=== PATIENT | male | born 1965 | race Caucasian/White ===

== ENCOUNTER 2017-04-24 11:21 | Inpatient (IN) | payer OTHER ==
--- NOTE | 2017-04-24 11:46 | ED ---
General Adult HPI - General Stated complaint: CHEST PAIN, GABY AND BOIL ON GENITALS Time Seen by Provider: 04/24/17 11:41 Source: RN notes reviewed, old records reviewed - History of Present Illness Initial comments: This is a 51-year-old male the ER for evaluation. This patient presents today for evaluation regarding chest pain, out of control blood sugar, and different infections abscesses and rashes. Patient states he is not receiving any medical care although he has a significant medical history even from cardiac bypass. He states just things are going on and off for a while. Patient is also a blood sugar running out of control. Patient states just in general he is not feel well. No nausea or vomiting at this time. No diarrhea. No abdominal pain - Related Data Home Medications Medication Instructions Recorded Confirmed No Known Home Medications [No 04/24/17 04/24/17 Known Home Medications] Allergies Allergy/AdvReac Type Severity Reaction Status Date / Time No Known Allergies Allergy Verified 04/24/17 12:06 Review of Systems ROS Statement: Those systems with pertinent positive or pertinent negative responses have been documented in the HPI. ROS Other: All systems not noted in ROS Statement are negative. General Exam - General Exam Comments Initial Comments: Groin infection,. Positive purulent Drainage General appearance: alert, in no apparent distress Head exam: Present: atraumatic, normocephalic, normal inspection Eye exam: Present: normal appearance, PERRL, EOMI. Absent: scleral icterus, conjunctival injection, periorbital swelling ENT exam: Present: normal exam, mucous membranes moist Neck exam: Present: normal inspection. Absent: tenderness, meningismus, lymphadenopathy Respiratory exam: Present: normal lung sounds bilaterally. Absent: respiratory distress, wheezes, rales, rhonchi, stridor Cardiovascular Exam: Present: regular rate, normal rhythm, normal heart sounds. Absent: systolic murmur, diastolic murmur, rubs, gallop, clicks GI/Abdominal exam: Present: soft, normal bowel sounds. Absent: distended, tenderness, guarding, rebound, rigid Extremities exam: Present: normal inspection, full ROM, normal capillary refill. Absent: tenderness, pedal edema, joint swelling, calf tenderness Back exam: Present: normal inspection Neurological exam: Present: alert, oriented X3, CN II-XII intact Psychiatric exam: Present: normal affect, normal mood Skin exam: Present: warm, dry, intact, normal color. Absent: rash Course Vital Signs 04/24/17 04/24/17 11:25 12:39 Temperature 97.8 F Pulse Rate 90 84 Respiratory 16 16 Rate Blood Pressure 130/73 155/77 O2 Sat by Pulse 97 99 Oximetry - Reevaluation(s) Reevaluation #1: 04/24/17 12:53 Patient states he just does not feel well feels weak EKG Findings - EKG Comments: EKG Findings:: EKG shows normal sinus at a rate of 88, NE 180, QRS 108, QTC 471 Medical Decision Making - Medical Decision Making 449 mallei chest pain. Patient has multiple other complaints including severely elevated blood sugar is new for him and groin infections, patient stopped seeing physicians are as of recent, takes no medication that he is supposed to. With significant history of cardiac bypass 17 years ago. - Lab Data Result diagrams: 04/24/17 11:40 04/24/17 11:40 Lab Results 04/24/17 04/24/17 04/24/17 Range/Units 11:40 11:40 11:40 WBC 11.0 H (3.8-10.6) k/uL RBC 4.97 (4.30-5.90) m/uL Hgb 14.9 (13.0-17.5) gm/dL Hct 43.4 (39.0-53.0) % MCV 87.3 (80.0-100.0) fL MCH 30.0 (25.0-35.0) pg MCHC 34.3 (31.0-37.0) g/dL RDW 12.8 (11.5-15.5) % Plt Count 251 (150-450) k/uL Neutrophils % 69 % Lymphocytes % 20 % Monocytes % 5 % Eosinophils % 4 % Basophils % 1 % Neutrophils # 7.6 (1.3-7.7) k/uL Lymphocytes # 2.2 (1.0-4.8) k/uL Monocytes # 0.5 (0-1.0) k/uL Eosinophils # 0.4 (0-0.7) k/uL Basophils # 0.1 (0-0.2) k/uL PT (9.0-12.0) sec INR (<1.2) APTT (22.0-30.0) sec D-Dimer (<0.60) mg/L FEU Sodium 135 L (137-145) mmol/L Potassium 4.4 (3.5-5.1) mmol/L Chloride 99 (98-107) mmol/L Carbon Dioxide 26 (22-30) mmol/L Anion Gap 10 mmol/L BUN 8 L (9-20) mg/dL Creatinine 0.70 (0.66-1.25) mg/dL Est GFR (MDRD) Af Amer >60 (>60 ml/min/1.73 sqM) Est GFR (MDRD) Non-Af >60 (>60 ml/min/1.73 sqM) Glucose 450 H* (74-99) mg/dL Calcium 9.1 (8.4-10.2) mg/dL Magnesium 0.8 L* (1.6-2.3) mg/dL Total Bilirubin 0.3 (0.2-1.3) mg/dL AST 16 L (17-59) U/L ALT 26 (21-72) U/L Alkaline Phosphatase 220 H (38-126) U/L Total Creatine Kinase 32 L (55-170) U/L CK-MB (CK-2) 0.7 (0.0-2.4) ng/mL CK-MB (CK-2) Rel Index 2.2 Troponin I <0.012 (0.000-0.034) ng/mL Total Protein 5.7 L (6.3-8.2) g/dL Albumin 3.4 L (3.5-5.0) g/dL Lipase 235 (23-300) U/L 04/24/17 Range/Units 11:40 WBC (3.8-10.6) k/uL RBC (4.30-5.90) m/uL Hgb (13.0-17.5) gm/dL Hct (39.0-53.0) % MCV (80.0-100.0) fL MCH (25.0-35.0) pg MCHC (31.0-37.0) g/dL RDW (11.5-15.5) % Plt Count (150-450) k/uL Neutrophils % % Lymphocytes % % Monocytes % % Eosinophils % % Basophils % % Neutrophils # (1.3-7.7) k/uL Lymphocytes # (1.0-4.8) k/uL Monocytes # (0-1.0) k/uL Eosinophils # (0-0.7) k/uL Basophils # (0-0.2) k/uL PT 13.8 H (9.0-12.0) sec INR 1.4 H (<1.2) APTT 26.1 (22.0-30.0) sec D-Dimer 0.31 (<0.60) mg/L FEU Sodium (137-145) mmol/L Potassium (3.5-5.1) mmol/L Chloride (98-107) mmol/L Carbon Dioxide (22-30) mmol/L Anion Gap mmol/L BUN (9-20) mg/dL Creatinine (0.66-1.25) mg/dL Est GFR (MDRD) Af Amer (>60 ml/min/1.73 sqM) Est GFR (MDRD) Non-Af (>60 ml/min/1.73 sqM) Glucose (74-99) mg/dL Calcium (8.4-10.2) mg/dL Magnesium (1.6-2.3) mg/dL Total Bilirubin (0.2-1.3) mg/dL AST (17-59) U/L ALT (21-72) U/L Alkaline Phosphatase (38-126) U/L Total Creatine Kinase (55-170) U/L CK-MB (CK-2) (0.0-2.4) ng/mL CK-MB (CK-2) Rel Index Troponin I (0.000-0.034) ng/mL Total Protein (6.3-8.2) g/dL Albumin (3.5-5.0) g/dL Lipase (23-300) U/L - Radiology Data Radiology results: report reviewed (Chest x-ray is negative for acute disease), image reviewed Critical Care Time Critical Care Time: Yes Total Critical Care Time: 31 Disposition Clinical Impression: Chest pain, Hyperglycemia, Hypomagnesemia, Cellulitis of groin Disposition: ADMITTED IP TO THIS [facility] Referrals: Leeann Torres MD [Primary Care Provider] - 1-2 days
[2017-04-24 11:52] LABS: Basophils # (A) 0.1 k/uL (0-0.2); Basophils % (A) 1 %; CHCM 34.5; Eosinophils # (A) 0.4 k/uL (0-0.7); Eosinophils % (A) 4 %; HCT 43.4 % (39.0-53.0); HDW 2.65; HGB 14.9 gm/dL (13.0-17.5); Luc # (Auto) 0.22; Luc % (Auto) 2; Lymphocytes # (A) 2.2 k/uL (1.0-4.8); Lymphocytes % (A) 20 %; MCHC 34.3 g/dL (31.0-37.0); MCV 87.3 fL (80.0-100.0); Mean Platelet Volume 7.8; Monocytes # (A) 0.5 k/uL (0-1.0); Monocytes % (A) 5 %; Neutrophils # (A) 7.6 k/uL (1.3-7.7); Neutrophils % (A) 69 %; RBC 4.97 m/uL (4.30-5.90); RDW 12.8 % (11.5-15.5); WBC (Perox) 11.07
[2017-04-24 12:18] LABS: INR 1.4 (<1.2); Partial Thromboplastin Time 26.1 sec (22.0-30.0); Prothrombin Time 13.8 sec (9.0-12.0)
[2017-04-24 12:23] LABS: Creatine Kinase 32 U/L (55-170)
[2017-04-24 12:28] LABS: ALT 26 U/L (21-72); AST 16 U/L (17-59); Alkaline Phosphatase 220 U/L (38-126); Anion Gap 10 mmol/L; Blood Urea Nitrogen 8 mg/dL (9-20); Calcium 9.1 mg/dL (8.4-10.2); Carbon Dioxide 26 mmol/L (22-30); Chloride 99 mmol/L (98-107); Non-African American GFR(MDRD) >60 (>60 ml/min/1.73 sqM); Potassium 4.4 mmol/L (3.5-5.1); Sodium 135 mmol/L (137-145); Total Bilirubin 0.3 mg/dL (0.2-1.3); Total Protein 5.7 g/dL (6.3-8.2)
[2017-04-24 12:36] LABS: Creatine Kinase MB 0.7 ng/mL (0.0-2.4); Troponin I <0.012 ng/mL (0.000-0.034)
[2017-04-24 12:37] LABS: Glucose 450 mg/dL (74-99)
[2017-04-24 12:38] LABS: Magnesium 0.8 mg/dL (1.6-2.3)
[2017-04-24] MEDS ORDERED: NITROGLYCERIN SL TABS 0.4 MG TAB SUBLINGUAL PRN (12:50)
[2017-04-24] MEDS ORDERED: ASPIRIN 81 MG CHEW PO STA (12:50)
[2017-04-24] MEDS ORDERED: SODIUM CHLORIDE 0.9% 1,000 ML IV STA (12:50)
[2017-04-24] MEDS ORDERED: IV VANCOMYCIN PER PHARMACY 1 EACH MISC MISCELLANE PRN (12:50)
[2017-04-24] MEDS ORDERED: SODIUM CHLORIDE 0.9% 500 ML IV STA (12:50)
[2017-04-24] MEDS: MAGNESIUM SULFATE-D5W PMX 1 GM in DEXTROSE/WATER 1 100ML.BAG IVPB SCH ×4 (13:29→16:53)
[2017-04-24] MEDS ORDERED: VANCOMYCIN 1,500 MG in SODIUM CHLORIDE 0.9% 250 ML IVPB ONE (13:30)
[2017-04-24] MEDS: HYDROcodone/APAP 7.5-325MG 1 EACH TAB PO PRN ×2 (14:30→19:07)
[2017-04-24] MEDS: SODIUM CHLORIDE 0.9% 1,000 ML IV SCH (15:12)
[2017-04-24 15:17] LABS: Glucose,Whole Blood 399 mg/dL (75-99)
--- NOTE | 2017-04-24 15:43 | XR ---
EXAMINATION TYPE: XR chest 2V DATE OF EXAM: 04/24/2017 COMPARISON: Chest x-ray July 30, 2010. HISTORY: Chest pain and difficulty in breathing. TECHNIQUE: Frontal and lateral views of the chest are obtained. FINDINGS: Sternal wires and mediastinal clips are redemonstrated. There is no focal air space opacit y, pleural effusion, or pneumothorax seen. The cardiac silhouette size is within normal limits. Rese ction of distal right clavicle is felt redemonstrated. IMPRESSION: No acute cardiopulmonary process. No significant change from prior study.
[2017-04-24] MEDS: INSULIN LISPRO (humaLOG) 300 UNIT/3 ML VIAL SQ SCH (15:45)
--- NOTE | 2017-04-24 16:01 | P.HPIM ---
History of Present Illness H&P Date: 04/24/17 Chief Complaint: Chest pain, right groin abscess uncontrolled sugars This is a 51-year-old gentleman with no previous PCP and hasn't established to our clinic yet , insurance card delegated myself as PCP,, known history of CAD in 1999 with 4 vessel bypass surgery performed at [facility] with Dr. nataarjan, also diabetes mellitus type 2 since 2008 compliant with medications now complaining of diabetic neuropathy, history of psoriasis, COPD, hypertension and hyperlipidemia not medicated at all prior to this current admission. He presents emergency room with multiple complaints include chest discomfort this has been ongoing for several months it is sharp and located in the left sternal border and the lower thoracic region, with a penetrating needle like sensation, also with shortness of breath with dyspnea and exertion for his short walks between 50-100 feet, patient denies any fever she has paresthesias in the lower extremities with pinprick sensation bilateral leg, right groin has an abscess that sounds like it ruptured and has been giving him problems for the past 6 days. Patient denies any PND no fever no chills no cough no aspirate the events patient has lost 25 pounds for the past 7 months with polyuria polydipsia polyphagia. Patient did not have any medical attention secondary to lack of insurance until his insurance card came in this week she denies any focal neurologic events to include headache that diplopia isolated unilateral motor deficits, no hematuria no hematemesis no melena In the emergency room he was seen about symptoms with leukocytosis, glucose of 450, CO2 levels 26, Actiq acid levels for review, lipase and d-dimer is are normal initial set of troponin is negative chest x-ray unremarkable, EKG shows normal sinus rhythm with Q waves in 3 and aVF significant for inferior infarct, and no other acute ST-T wave changes noted. Patient will be seen consultation by cardiology, and Dr. Hernandez for debridement of the right groin abscess. Patient was started on IV vancomycin with cultures obtained on the right groin. Review of Systems Constitutional: Reports anorexia, Reports chronic pain, Reports night sweats, Reports weight loss, Denies as per HPI, Denies chills, Denies chronic headaches , Denies daytime sleepiness, Denies fatigue, Denies fever, Denies lethargy, Denies malaise, Denies poor appetite, Denies sweats, Denies weakness, Denies weight gain Ears, nose, mouth and throat: Reports as per HPI, Denies ant. neck pain, Denies bleeding gums, Denies dental pain, Denies dysphagia, Denies epistaxis, Denies headache, Denies hoarseness, Denies mouth pain, Denies nasal congestion, Denies nasal discharge, Denies neck fullness/pressure, Denies neck lump, Denies nose pain, Denies odynophagia, Denies post-nasal drip, Denies sinus pain, Denies sinus pressure, Denies swelling in mouth, Denies swelling in throat, Denies sore throat, Denies vertigo, Denies voice changes Cardiovascular: Reports as per HPI, Reports chest pain, Reports decreased exercise tolerance, Reports dyspnea on exertion, Reports shortness of breath Respiratory: Reports as per HPI Gastrointestinal: Reports as per HPI, Denies abdominal pain, Denies belching, Denies bloating, Denies BRBPR, Denies change in bowel habits, Denies coffee ground emesis, Denies constipation, Denies diarrhea, Denies dyspepsia, Denies early satiety, Denies excessive gas, Denies heartburn, Denies hematemesis, Denies hematochezia, Denies indigestion, Denies jaundice, Denies lactose intolerance, Denies loss of appetite, Denies melena, Denies nausea, Denies vomiting Genitourinary: Reports as per HPI, Reports genital sores (Right groin abscess in the femoral crease), Denies decreased libido, Denies difficulties fathering child, Denies discharge, Denies dysuria, Denies erectile dysfunction, Denies flank pain, Denies genital pain, Denies hematuria, Denies impotence, Denies incontinence, Denies kidney stones, Denies nocturia, Denies polyuria, Denies testicular lump, Denies testicular pain, Denies urinary frequency, Denies urinary hesitancy, Denies urinary retention Musculoskeletal: Reports as per HPI, Reports leg numbness/tingling, Denies arm numbness/tingling, Denies atrophy, Denies fractures, Denies frequent falls, Denies gait dysfunction, Denies hot joints, Denies limitation of motion, Denies loss of height, Denies low back pain, Denies morning stiffness, Denies muscle cramps, Denies muscle weakness, Denies myalgias, Denies neck pain, Denies neck stiffness, Denies prior amputations, Denies redness of joints, Denies shooting arm pain, Denies shooting leg pain Integumentary: Reports as per HPI, Reports boils, Reports rash (Psoriasis) Neurological: Reports as per HPI, Reports paresthesias Psychiatric: Reports as per HPI, Reports insomnia, Reports sleep disturbances, Denies anhedonia, Denies anxiety, Denies anxiety attacks, Denies change in appetite, Denies change in libido, Denies change in sleep habits, Denies confusion, Denies depression, Denies difficulty concentrating, Denies disorientation, Denies hallucinations, Denies hopelessness, Denies hypersomnia, Denies irritability, Denies memory loss, Denies mood swings, Denies paranoia, Denies sadness/tearfulness, Denies suicidal ideation Endocrine: Reports as per HPI, Reports high blood sugars, Reports nocturia, Reports polydipsia, Reports polyphagia, Reports polyuria Hematologic/Lymphatic: Reports as per HPI, Denies easy bleeding, Denies easy bruising, Denies lymphadenopathy, Denies lymphedema, Denies thrombophilia Allergic/Immunologic: Reports as per HPI, Denies allergic rhinitis, Denies anaphylaxis, Denies angioedema, Denies gluten intolerance, Denies persistent infections, Denies seasonal allergies, Denies urticaria, Denies wheezing Past Medical History Past Medical History: Coronary Artery Disease (CAD), Chest Pain / Angina, Diabetes Mellitus, Hypertension History of Any Multi-Drug Resistant Organisms: None Reported Past Surgical History: Appendectomy, Cholecystectomy, Coronary Bypass/CABG (4. Vessel bypass [facility] 1999) Additional Past Surgical History / Comment(s): Lumbar disc surgery with cage, left shoulder scope Past Psychological History: Depression Smoking Status: Current every day smoker (2 packs per day) Past Alcohol Use History: None Reported Past Drug Use History: Marijuana - Past Family History Father History Unknown: Yes (Alive has dementia and lumbar disc disease) Mother History Unknown: Yes (Alive has cancer possibly throat unknown pathology) Brother(s) History Unknown: Yes (Brother from brain mass at age 38) Sister(s) History Unknown: Yes (Depression) Daughter(s) History Unknown: Yes (Healthy 1 daughter) Son(s) History Unknown: Yes (Healthy 5 sons) Medications and Allergies Home Medications Medication Instructions Recorded Confirmed Type No Known Home Medications [No 04/24/17 04/24/17 History Known Home Medications] Allergies Allergy/AdvReac Type Severity Reaction Status Date / Time No Known Allergies Allergy Verified 04/24/17 12:06 Physical Exam Vitals: Vital Signs Temp Pulse Resp BP Pulse Ox 04/24/17 14:33 97.8 F 87 17 134/86 100 04/24/17 13:25 97.8 F 90 18 138/81 99 04/24/17 12:39 84 16 155/77 99 04/24/17 11:25 97.8 F 90 16 130/73 97 Intake and Output 04/24/17 04/24/17 04/24/17 06:59 14:59 22:59 Other: Weight 70.307 kg Patient Weight 04/25/17 06:59 Weight 70.307 kg - Constitutional General appearance: cooperative, no acute distress - EENT Eyes: PERRLA, dentition normal, normal appearance ENT: NA/AT, normal oropharynx - Neck Neck: lymphadenopathy - Respiratory Respiratory: bilateral: CTA, negative: diminished, dullness, rales, wheezing - Cardiovascular Rhythm: regular Heart sounds: normal: S1, S2 Abnormal Heart Sounds: no systolic murmur, no diastolic murmur, no rub, no S3 Gallop, no S4 Gallop, no click, no other - Gastrointestinal General gastrointestinal: normal bowel sounds, soft - Genitourinary Male genitourinary: right inguinal lymphadenopathy (Right groin with ulcer and necrotic debris granulation tissue overlying it 2.5 cm x 2 cm inner thigh crease ) - Integumentary Integumentary: normal, normal turgor - Neurologic Neurologic: CNII-XII intact, focal deficits - Musculoskeletal Musculoskeletal: gait normal, strength equal bilaterally - Psychiatric Psychiatric: A&O x's 3, appropriate affect Results CBC & Chem 7: 04/24/17 11:40 04/24/17 11:40 Labs: Abnormal Lab Results - Last 24 Hours (Table) 04/24/17 04/24/17 04/24/17 Range/Units 11:40 11:40 11:40 WBC 11.0 H (3.8-10.6) k/uL PT (9.0-12.0) sec INR (<1.2) Sodium 135 L (137-145) mmol/L BUN 8 L (9-20) mg/dL Glucose 450 H* (74-99) mg/dL POC Glucose (mg/dL) (75-99) mg/dL Magnesium 0.8 L* (1.6-2.3) mg/dL AST 16 L (17-59) U/L Alkaline Phosphatase 220 H (38-126) U/L Total Creatine Kinase 32 L (55-170) U/L Total Protein 5.7 L (6.3-8.2) g/dL Albumin 3.4 L (3.5-5.0) g/dL 04/24/17 04/24/17 Range/Units 11:40 15:15 WBC (3.8-10.6) k/uL PT 13.8 H (9.0-12.0) sec INR 1.4 H (<1.2) Sodium (137-145) mmol/L BUN (9-20) mg/dL Glucose (74-99) mg/dL POC Glucose (mg/dL) 399 H (75-99) mg/dL Magnesium (1.6-2.3) mg/dL AST (17-59) U/L Alkaline Phosphatase (38-126) U/L Total Creatine Kinase (55-170) U/L Total Protein (6.3-8.2) g/dL Albumin (3.5-5.0) g/dL Laboratory Results WBC 11.0 k/uL (3.8-10.6) H 04/24/17 11:40 RBC 4.97 m/uL (4.30-5.90) 04/24/17 11:40 Hgb 14.9 gm/dL (13.0-17.5) 04/24/17 11:40 Hct 43.4 % (39.0-53.0) 04/24/17 11:40 MCV 87.3 fL (80.0-100.0) 04/24/17 11:40 MCH 30.0 pg (25.0-35.0) 04/24/17 11:40 MCHC 34.3 g/dL (31.0-37.0) 04/24/17 11:40 RDW 12.8 % (11.5-15.5) 04/24/17 11:40 Plt Count 251 k/uL (150-450) 04/24/17 11:40 Neutrophils % 69 % 04/24/17 11:40 Lymphocytes % 20 % 04/24/17 11:40 Monocytes % 5 % 04/24/17 11:40 Eosinophils % 4 % 04/24/17 11:40 Basophils % 1 % 04/24/17 11:40 Neutrophils # 7.6 k/uL (1.3-7.7) 04/24/17 11:40 Lymphocytes # 2.2 k/uL (1.0-4.8) 04/24/17 11:40 Monocytes # 0.5 k/uL (0-1.0) 04/24/17 11:40 Eosinophils # 0.4 k/uL (0-0.7) 04/24/17 11:40 Basophils # 0.1 k/uL (0-0.2) 04/24/17 11:40 PT 13.8 sec (9.0-12.0) H 04/24/17 11:40 INR 1.4 (<1.2) H 04/24/17 11:40 APTT 26.1 sec (22.0-30.0) 04/24/17 11:40 D-Dimer 0.31 mg/L FEU (<0.60) 04/24/17 11:40 Sodium 135 mmol/L (137-145) L 04/24/17 11:40 Potassium 4.4 mmol/L (3.5-5.1) 04/24/17 11:40 Chloride 99 mmol/L (98-107) 04/24/17 11:40 Carbon Dioxide 26 mmol/L (22-30) 04/24/17 11:40 Anion Gap 10 mmol/L 04/24/17 11:40 BUN 8 mg/dL (9-20) L 04/24/17 11:40 Creatinine 0.70 mg/dL (0.66-1.25) 04/24/17 11:40 Est GFR (MDRD) Af Amer >60 (>60 ml/min/1.73 sqM) 04/24/17 11:40 Est GFR (MDRD) Non-Af >60 (>60 ml/min/1.73 sqM) 04/24/17 11:40 Glucose 450 mg/dL (74-99) H* 04/24/17 11:40 POC Glucose (mg/dL) 399 mg/dL (75-99) H 04/24/17 15:15 POC Glu Mercury Recoverer ID Amber Rivera 04/24/17 15:15 Calcium 9.1 mg/dL (8.4-10.2) 04/24/17 11:40 Magnesium 0.8 mg/dL (1.6-2.3) L* 04/24/17 11:40 Total Bilirubin 0.3 mg/dL (0.2-1.3) 04/24/17 11:40 AST 16 U/L (17-59) L 04/24/17 11:40 ALT 26 U/L (21-72) 04/24/17 11:40 Alkaline Phosphatase 220 U/L (38-126) H 04/24/17 11:40 Total Creatine Kinase 32 U/L (55-170) L 04/24/17 11:40 CK-MB (CK-2) 0.7 ng/mL (0.0-2.4) 04/24/17 11:40 CK-MB (CK-2) Rel Index 2.2 04/24/17 11:40 Troponin I <0.012 ng/mL (0.000-0.034) 04/24/17 11:40 Total Protein 5.7 g/dL (6.3-8.2) L 04/24/17 11:40 Albumin 3.4 g/dL (3.5-5.0) L 04/24/17 11:40 Lipase 235 U/L (23-300) 04/24/17 11:40 Thrombosis Risk Factor Assmnt - DVT/VTE Prophylaxis DVT/VTE Prophylaxis: Low risk, early ambulation encouraged - Choose All That Apply Each Factor Represents 1 point: Age 41-60 years Thrombosis Risk Factor Assessment Total Risk Factor Score: 1 Thrombosis Risk Factor Assessment Level: Low Risk Assessment and Plan Plan: 1. Recurrent chest pain multifactorial associated with dyspnea and exertion, patient has multiple risk factors with underlying CAD prior CABG 4 vessel bypass , as well as uncontrolled untreated diabetes mellitus secondary to noncompliance , and current smoking history. Patient will be seen consultation by cardiology , echocardiogram will be done, cardiac troponins, patient would be in need of a stress test most likely chemical stress test secondary to groin abscess, either that of right wrist cardiac cath if needed, patient was seen by cardiology with aspirin 325 mg daily Lipitor 80 mg daily that was started and sublingual nitroglycerin when necessary 2. Diabetes mellitus type 2, since 1999 without any medical surveillance including medications for the past several years, dietitian to see for diabetic medications, patient was started on glimepiride 1 mg twice a day and hemoglobin A1c will be obtained 3. COPD exacerbation, no oral or IV Solu-Medrol be given, patient will be started on Pulmicort 1 mg twice a day along with albuterol Atrovent patient's sugars currently uncontrolled 4. Right groin crease ruptured abscess, cultures were done, patient was started on vancomycin and Rocephin. Cultures are back, consult Dr. Brannon for debridement and evaluation of the abscess 5. Noncompliance to manage old regimen and lack of medical supervision since 1999 again patient was advocated to comply with medication regimen for secondary and tertiary prevention 6. Tobacco exposure patient will be offered nicotine patches and assist with cessation program 7. Diabetic neuropathy gabapentin 100 mg 3 times a day would be started with be titrated as an outpatient 8. History of psoriasis currently stable no medication changes 8. Expected length of stay 3 nights CODE STATUS full GI prophylaxis Pepcid DVT prophylaxis KATHIE hose and early ambulation
[2017-04-24 16:57] LABS: Glucose,Whole Blood 303 mg/dL (75-99)
--- NOTE | 2017-04-24 18:22 | P.PN ---
Progress Note - Text Consult dictated. Will try local wound care with IV antibiotc. Possible surgery if doesn't respond
--- NOTE | 2017-04-24 18:31 | P.GSCN ---
History of Present Illness Consult date: 04/24/17 Reason for Consult: Possible debridement History of present illness: The patient was admitted with workup of chest pain. He also has diabetes which is not controlled. He's had an infection in the right posterior scrotal / buttock area for about 6 days. THis spontaneously drained. He had an infection in this area about 7 years ago when he had a heart catheterization. No exposure to MRSA. Review of Systems All systems: negative Past Medical History Past Medical History: Coronary Artery Disease (CAD), Chest Pain / Angina, Diabetes Mellitus, Hypertension History of Any Multi-Drug Resistant Organisms: None Reported Past Surgical History: Appendectomy, Cholecystectomy, Coronary Bypass/CABG (4. Vessel bypass [facility] 1999) Additional Past Surgical History / Comment(s): Lumbar disc surgery with cage, left shoulder scope Past Psychological History: Depression Smoking Status: Current every day smoker (2 packs per day) Past Alcohol Use History: None Reported Past Drug Use History: Marijuana - Past Family History Father History Unknown: Yes (Alive has dementia and lumbar disc disease) Mother History Unknown: Yes (Alive has cancer possibly throat unknown pathology) Brother(s) History Unknown: Yes (Brother from brain mass at age 38) Sister(s) History Unknown: Yes (Depression) Daughter(s) History Unknown: Yes (Healthy 1 daughter) Son(s) History Unknown: Yes (Healthy 5 sons) Medications and Allergies Home Medications Medication Instructions Recorded Confirmed Type No Known Home Medications [No 04/24/17 04/24/17 History Known Home Medications] Allergies Allergy/AdvReac Type Severity Reaction Status Date / Time No Known Allergies Allergy Verified 04/24/17 12:06 Surgical - Exam Osteopathic Statement: *. No significant issues noted on an osteopathic structural exam other than those noted in the History and Physical/Consult. Vital Signs Temp Pulse Resp BP Pulse Ox 97.8 F 90 16 130/73 97 04/24/17 11:25 04/24/17 11:25 04/24/17 11:25 04/24/17 11:25 04/24/17 11:25 - General well developed, well nourished, no distress - Eyes normal ocular movement - Integumentary He has a 1.5 cm skin opening about 1.5-2 cm deep with surrounding superficial cellulitis. No undrained abscess. Small amount of slough present. Results - Labs 04/24/17 11:40 04/24/17 11:40 Abnormal Lab Results - Last 24 Hours (Table) 04/24/17 04/24/17 04/24/17 Range/Units 11:40 11:40 11:40 WBC 11.0 H (3.8-10.6) k/uL PT (9.0-12.0) sec INR (<1.2) Sodium 135 L (137-145) mmol/L BUN 8 L (9-20) mg/dL Glucose 450 H* (74-99) mg/dL POC Glucose (mg/dL) (75-99) mg/dL Magnesium 0.8 L* (1.6-2.3) mg/dL AST 16 L (17-59) U/L Alkaline Phosphatase 220 H (38-126) U/L Total Creatine Kinase 32 L (55-170) U/L Total Protein 5.7 L (6.3-8.2) g/dL Albumin 3.4 L (3.5-5.0) g/dL 04/24/17 04/24/17 04/24/17 Range/Units 11:40 15:15 16:56 WBC (3.8-10.6) k/uL PT 13.8 H (9.0-12.0) sec INR 1.4 H (<1.2) Sodium (137-145) mmol/L BUN (9-20) mg/dL Glucose (74-99) mg/dL POC Glucose (mg/dL) 399 H 303 H (75-99) mg/dL Magnesium (1.6-2.3) mg/dL AST (17-59) U/L Alkaline Phosphatase (38-126) U/L Total Creatine Kinase (55-170) U/L Total Protein (6.3-8.2) g/dL Albumin (3.5-5.0) g/dL Microbiology - Last 24 Hours (Table) 04/24/17 13:25 Wound Culture - Preliminary Groin Diabetes panel 04/24/17 Range/Units 11:40 Sodium 135 L (137-145) mmol/L Potassium 4.4 (3.5-5.1) mmol/L Chloride 99 (98-107) mmol/L Carbon Dioxide 26 (22-30) mmol/L BUN 8 L (9-20) mg/dL Creatinine 0.70 (0.66-1.25) mg/dL Glucose 450 H* (74-99) mg/dL Calcium 9.1 (8.4-10.2) mg/dL AST 16 L (17-59) U/L ALT 26 (21-72) U/L Alkaline Phosphatase 220 H (38-126) U/L Total Protein 5.7 L (6.3-8.2) g/dL Albumin 3.4 L (3.5-5.0) g/dL Calcium panel 04/24/17 Range/Units 11:40 Calcium 9.1 (8.4-10.2) mg/dL Albumin 3.4 L (3.5-5.0) g/dL Pituitary panel 04/24/17 Range/Units 11:40 Sodium 135 L (137-145) mmol/L Potassium 4.4 (3.5-5.1) mmol/L Chloride 99 (98-107) mmol/L Carbon Dioxide 26 (22-30) mmol/L BUN 8 L (9-20) mg/dL Creatinine 0.70 (0.66-1.25) mg/dL Glucose 450 H* (74-99) mg/dL Calcium 9.1 (8.4-10.2) mg/dL Adrenal panel 04/24/17 Range/Units 11:40 Sodium 135 L (137-145) mmol/L Potassium 4.4 (3.5-5.1) mmol/L Chloride 99 (98-107) mmol/L Carbon Dioxide 26 (22-30) mmol/L BUN 8 L (9-20) mg/dL Creatinine 0.70 (0.66-1.25) mg/dL Glucose 450 H* (74-99) mg/dL Calcium 9.1 (8.4-10.2) mg/dL Total Bilirubin 0.3 (0.2-1.3) mg/dL AST 16 L (17-59) U/L ALT 26 (21-72) U/L Alkaline Phosphatase 220 H (38-126) U/L Total Protein 5.7 L (6.3-8.2) g/dL Albumin 3.4 L (3.5-5.0) g/dL Assessment and Plan (1) Cellulitis of groin Status: Acute (2) Hyperglycemia Status: Acute Plan: A culture was obtained. He is on broad-spectrum antibiotics. We'll start local wound care. No need for debridement at this point. This may need debridement if it does not respond however.
[2017-04-24 18:46] LABS: Hemoglobin A1C 14.7 % (4.2-6.1)
[2017-04-24 18:55] LABS: Creatine Kinase 28 U/L (55-170)
[2017-04-24 19:00] VITALS: RESP 18
[2017-04-24 19:05] LABS: Creatine Kinase MB 0.7 ng/mL (0.0-2.4); Troponin I <0.012 ng/mL (0.000-0.034)
[2017-04-24] MEDS: NICOTINE 21MG/24HR PATCH TRANSDERM SCH (19:07)
[2017-04-24] MEDS: GLIMEPIRIDE 1 MG TAB PO SCH (19:07)
[2017-04-24] MEDS: GABAPENTIN 100 MG CAP PO SCH ×2 (19:08→22:02)
[2017-04-24] MEDS: BUDESONIDE 0.5 MG/2 ML NEBU INHALATION SCH (20:57)
[2017-04-24] MEDS: IPRATROPIUM-ALBUTEROL 3 ML NEB INHALATION SCH (20:57)
[2017-04-24 21:10] LABS: Glucose,Whole Blood 217 mg/dL (75-99)
[2017-04-24] MEDS: VANCOMYCIN 1,250 MG in SODIUM CHLORIDE 0.9% 250 ML IVPB SCH (22:02)
[2017-04-25 00:35] LABS: Creatine Kinase 28 U/L (55-170)
[2017-04-25 00:48] LABS: Creatine Kinase MB 0.6 ng/mL (0.0-2.4); Troponin I <0.012 ng/mL (0.000-0.034)
[2017-04-25] MEDS: SODIUM CHLORIDE 0.9% 1,000 ML IV SCH ×3 (03:08→19:31)
[2017-04-25] MEDS: HYDROcodone/APAP 7.5-325MG 1 EACH TAB PO PRN ×5 (03:08→23:01)
[2017-04-25] MEDS: VANCOMYCIN 1,250 MG in SODIUM CHLORIDE 0.9% 250 ML IVPB SCH ×3 (06:02→21:39)
[2017-04-25 06:06] LABS: Glucose,Whole Blood 228 mg/dL (75-99)
[2017-04-25 06:45] LABS: Magnesium 1.2 mg/dL (1.6-2.3)
[2017-04-25] MEDS: INSULIN LISPRO (humaLOG) 300 UNIT/3 ML VIAL SQ SCH ×3 (06:52→16:34)
[2017-04-25] MEDS: ATORVASTATIN 80 MG TAB PO SCH (08:05)
[2017-04-25] MEDS: ASPIRIN 325 MG TAB PO SCH (08:05)
[2017-04-25] MEDS: NICOTINE 21MG/24HR PATCH TRANSDERM SCH (08:05)
[2017-04-25] MEDS: GABAPENTIN 100 MG CAP PO SCH ×3 (08:05→21:39)
[2017-04-25] MEDS: IPRATROPIUM-ALBUTEROL 3 ML NEB INHALATION SCH ×3 (08:30→18:59)
[2017-04-25] MEDS: BUDESONIDE 0.5 MG/2 ML NEBU INHALATION SCH ×2 (08:30→18:59)
[2017-04-25] MEDS ORDERED: AMINOPHYLLINE 500 MG/20 ML VIAL IV PRN (08:49)
[2017-04-25] MEDS ORDERED: REGADENOSON 0.4 MG/5 ML SYRINGE IV ONE (08:49)
--- NOTE | 2017-04-25 08:52 | P.CRDCN ---
History of Present Illness Consult date: 04/25/17 Consult reason: chest pain History of present illness: Patient with history of coronary artery disease status post CABG in 1999 and diabetes who has been noncompliant with therapy and hasn't been seen by cryptanalyst and a long time comes to hospital with multiple symptomatology including exertional shortness of breath sharp atypical chest pain and not feeling well. He complains of exertional shortness of breath that is mild to moderate intensity comes on with activity and is relieved with rest. He also has vague atypical chest pain that is sharp pericardial unassociated with diaphoresis and unrelated to exertion. There are no clear-cut relieving or exacerbating factors. Patient has an abscess involving the time. Surgeon had seen and is currently working him up. An EKG showed sinus rhythm with evidence apparently wall myocardial infarction 3 sets of cardiac enzymes are negative. I 'm going to obtain records from [facility]. I will schedule the patient for a Lexiscan obtain a 2-D echo and decide on further course of action based on the test results. Review of Systems Constitutional: Denies chills. Denies fever. Fatigue and tired Eyes: Denies blurred vision. Denies pain. Ears, nose, mouth and throat: Denies headache. Denies sore throat. Cardiovascular: has chest pain/ shortness of breath. Respiratory: Denies cough. Gastrointestinal: Denies abdominal pain. Denies diarrhea. Denies nausea. Denies vomiting. Musculoskeletal: Denies myalgias. Integumentary: Denies pruritus. Denies rash. Neurological: Denies numbness. Denies weakness. Psychiatric: Denies anxiety. Denies depression. Endocrine: Denies fatigue. Denies weight change. Genitourinary: Denies burning, hematuria, frequency of urination. Hematological: No anemia or excess bleeding. Past Medical History Past Medical History: Coronary Artery Disease (CAD), Chest Pain / Angina, Diabetes Mellitus, Hypertension Additional Past Medical History / Comment(s): CONSTIPATED- "LAST BM 5-6 DAYS AGO ",ONLY HAS 2 TEETH .PSORIASES Last Myocardial Infarction Date:: 1999 History of Any Multi-Drug Resistant Organisms: None Reported Past Surgical History: Appendectomy, Cholecystectomy, Coronary Bypass/CABG (4. Vessel bypass [facility] 1999) Additional Past Surgical History / Comment(s): Lumbar disc surgery with cage, left shoulder scope Past Anesthesia/Blood Transfusion Reactions: No Reported Reaction Smoking Status: Current every day smoker - Past Family History Father History Unknown: Yes (Alive has dementia and lumbar disc disease) Family Medical History: Dementia Mother History Unknown: Yes (Alive has cancer possibly throat unknown pathology) Family Medical History: Cancer Brother(s) History Unknown: Yes (Brother from brain mass at age 38) Sister(s) History Unknown: Yes (Depression) Daughter(s) History Unknown: Yes (Healthy 1 daughter) Son(s) History Unknown: Yes (Healthy 5 sons) Medications and Allergies Home Medications Medication Instructions Recorded Confirmed Type No Known Home Medications [No 04/24/17 04/24/17 History Known Home Medications] Allergies Allergy/AdvReac Type Severity Reaction Status Date / Time No Known Allergies Allergy Verified 04/24/17 12:06 Physical Exam Vitals: Vital Signs Temp Pulse Pulse Resp BP BP Pulse Ox 04/25/17 08:45 78 04/25/17 08:30 76 04/25/17 03:31 98.0 F 75 18 122/83 98 04/24/17 23:28 98.3 F 78 18 127/75 97 04/24/17 21:14 80 04/24/17 20:58 80 04/24/17 20:00 98.7 F 82 18 126/97 97 04/24/17 18:59 98.0 F 77 18 134/73 97 04/24/17 17:45 18 04/24/17 17:44 98.6 F 85 16 141/84 97 04/24/17 16:54 91 18 147/80 97 04/24/17 15:51 98.2 F 87 16 141/80 98 04/24/17 14:33 97.8 F 87 17 134/86 100 04/24/17 13:25 97.8 F 90 18 138/81 99 04/24/17 12:39 84 16 155/77 99 04/24/17 11:25 97.8 F 90 16 130/73 97 Intake and Output 04/24/17 04/25/17 04/25/17 22:59 06:59 14:59 Intake Total 1050 Balance 1050 Intake: IV 1050 Sodium Chloride 0.9% 1, 800 000 ml @ 100 mls/hr IV . Q10H [facility] Rx#:[id number] Vancomycin 1,250 mg In 250 Sodium Chloride 0.9% 250 ml @ 125 mls/hr IVPB Q8H [facility] Rx#:[id number] Other: Voiding Method Toilet # Voids 1 Weight 63.8 kg General: The patient is awake and alert, in no distress, and does not appear acutely ill. Skin: Skin is warm and dry and no rashes or lesions are noted. Eye: Pupils are equal, round and reactive to light, extra-ocular movements are intact; there is normal conjunctiva bilaterally. Ears, nose, mouth and throat: There are moist mucous membranes and no oral lesions. Neck: The neck is supple, there is no tenderness or JVD. Cardiovascular: There is a regular rate and rhythm. No murmur, rub or gallop is appreciated. Respiratory: Lungs are clear to auscultation, respirations are non-labored, breath sounds are equal. Gastrointestinal: Soft, non-distended, non-tender abdomen without masses or organomegaly noted. There is no rebound or guarding present. Bowel sounds are unremarkable. Back: There is no tenderness to palpation in the midline. There is no obvious deformity. Musculoskeletal: Normal ROM, no tenderness, There is no pedal edema. There is no calf tenderness or swelling. Cellulitis over the thigh Extremities: No edema. Vascular: Femoral pulse is normal. Posterior tibial pulses are normal .Dorsalis pedis is palpable. Neurological: CN II-XII intact. There are no obvious motor or sensory deficits. Speech is normal. Psychiatric: Cooperative, appropriate mood & affect, normal judgment. Results 04/24/17 11:40 04/24/17 11:40 Cardiac Enzymes 04/24/17 04/24/17 04/24/17 Range/Units 11:40 11:40 18:11 AST 16 L (17-59) U/L CK-MB (CK-2) 0.7 0.7 (0.0-2.4) ng/mL Troponin I <0.012 <0.012 (0.000-0.034) ng/mL 04/24/17 Range/Units 23:52 AST (17-59) U/L CK-MB (CK-2) 0.6 (0.0-2.4) ng/mL Troponin I <0.012 (0.000-0.034) ng/mL Coagulation 04/24/17 Range/Units 11:40 PT 13.8 H (9.0-12.0) sec APTT 26.1 (22.0-30.0) sec Lipids 04/25/17 Range/Units 06:04 Triglycerides 83 (<150) mg/dL Cholesterol 135 (<200) mg/dL HDL Cholesterol 44 (40-60) mg/dL CBC 04/24/17 Range/Units 11:40 WBC 11.0 H (3.8-10.6) k/uL RBC 4.97 (4.30-5.90) m/uL Hgb 14.9 (13.0-17.5) gm/dL Hct 43.4 (39.0-53.0) % Plt Count 251 (150-450) k/uL Comprehensive Metabolic Panel 04/24/17 Range/Units 11:40 Sodium 135 L (137-145) mmol/L Potassium 4.4 (3.5-5.1) mmol/L Chloride 99 (98-107) mmol/L Carbon Dioxide 26 (22-30) mmol/L BUN 8 L (9-20) mg/dL Creatinine 0.70 (0.66-1.25) mg/dL Glucose 450 H* (74-99) mg/dL Calcium 9.1 (8.4-10.2) mg/dL AST 16 L (17-59) U/L ALT 26 (21-72) U/L Alkaline Phosphatase 220 H (38-126) U/L Total Protein 5.7 L (6.3-8.2) g/dL Albumin 3.4 L (3.5-5.0) g/dL Current Medications Generic Name Dose Route Start Last Admin Trade Name Freq PRN Reason Stop Dose Admin Hydrocodone Bitart/Acetaminophen 1 each 04/24/17 13:38 04/25/17 08:05 [place] 7.5-325 PO 1 each Q4H PRN Administration Pain Albuterol/Ipratropium 3 ml 04/24/17 20:00 04/25/17 08:30 Duoneb 0.5 Mg-3 Mg/3 Ml Soln INHALATION 3 ml RT-TID ANA Administration Aspirin 325 mg 04/25/17 09:00 04/25/17 08:05 Aspirin PO 325 mg DAILY ANA Administration Atorvastatin Calcium 80 mg 04/25/17 09:00 04/25/17 08:05 Lipitor PO 80 mg DAILY ANA Administration Budesonide 0.5 mg 04/24/17 20:00 04/25/17 08:30 Pulmicort INHALATION 0.5 mg RT-BID ANA Administration Gabapentin 100 mg 04/24/17 16:00 04/25/17 08:05 Neurontin PO 100 mg TID ANA Administration Glimepiride 1 mg 04/24/17 17:30 04/24/17 19:07 Amaryl PO 1 mg AC-BID ANA Administration Sodium Chloride 1,000 mls @ 100 mls/hr 04/24/17 13:00 04/25/17 03:08 Saline 0.9% IV 100 mls/hr .Q10H ANA Administration Vancomycin HCl 1,250 mg/ 250 mls @ 125 mls/hr 04/24/17 22:00 04/25/17 06:02 Sodium Chloride IVPB 125 mls/hr Q8H ANA Administration Ceftriaxone Sodium 1,000 mg/ 50 mls @ 100 mls/hr 04/24/17 16:30 04/24/17 19: 05 Sodium Chloride IVPB 100 mls/hr DAILY@1600 ANA Administration Insulin Human Lispro 0 unit 04/24/17 17:30 04/25/17 06:52 Humalog SQ 3 unit AC-TID ANA Administration Protocol Miscellaneous Information 1 each 04/26/17 05:00 Vancomycin Trough Due MISCELLANE 04/26/17 05:01 ONCE ONE Nicotine 1 patch 04/24/17 16:15 04/25/17 08:05 Habitrol 21mg/24hr Patch TRANSDERM 1 patch DAILY ANA Administration Nitroglycerin 0.4 mg 04/24/17 12:50 Nitrostat SUBLINGUAL Q5M PRN Chest Pain Intake and Output 04/24/17 04/25/17 04/25/17 22:59 06:59 14:59 Intake Total 1050 Balance 1050 Intake: IV 1050 Sodium Chloride 0.9% 1, 800 000 ml @ 100 mls/hr IV . Q10H ANA Rx#:[id number] Vancomycin 1,250 mg In 250 Sodium Chloride 0.9% 250 ml @ 125 mls/hr IVPB Q8H [facility]NA Rx#:[id number] Other: Voiding Method Toilet # Voids 1 Weight 63.8 kg 04/24/17 11:40 04/24/17 11:40 EKG Interpretations (text) Normal sinus rhythm with evidence of prior inferior wall myocardial infarction Assessment and Plan Plan: Exertional shortness of breath rule out cardiac causes [id number] diabetes with poorly controlled blood sugars Cellulitis of the leg Myocardial infarction has been ruled out I'm going to obtain bypass surgery report from him for movements will treat him with optimal medical therapy including aspirin and statin beta blockers and nitrates. I will obtain a stress test and echocardiogram and decide on further course of action
[2017-04-25 09:01] VITALS: BMI 22.6
[2017-04-25] MEDS ORDERED: DOBUTamine DRIP for NUC MED 500 MG in DEXTROSE/WATER 1 250ML.BAG IV ONE ×2 (09:28→11:19)
[2017-04-25] MEDS: ISOSORBIDE MONONITRATE ER 30 MG TAB.ER.24H PO SCH (10:20)
[2017-04-25] MEDS: METOPROLOL TARTRATE 12.5 MG TAB PO SCH ×2 (10:20→21:39)
[2017-04-25] MEDS: GLIMEPIRIDE 1 MG TAB PO SCH (10:20)
[2017-04-25 11:33] LABS: Glucose,Whole Blood 266 mg/dL (75-99)
--- NOTE | 2017-04-25 11:34 | P.PN ---
Progress Note - Text The patient's culture shows presumed staph and enterococcus. Continue broad- spectrum antibiotics and local wound care. No drainable abscess at this time. We'll recheck him.
[2017-04-25] MEDS ORDERED: ATROPINE SULFATE 0.1 MG/ML 10ML SYRINGE ONE (11:52)
--- NOTE | 2017-04-25 13:35 | ECHOF ---
Referral Reason:cp MEASUREMENTS -------- HEIGHT: 167.6 cm WEIGHT: 70.3 kg BP: 114/78 RVIDd: 3.1 cm (< 3.3) IVSd: 1.1 cm (0.6 - 1.1) LVIDd: 4.3 cm (3.9 - 5.3) LVPWd: 1.1 cm (0.6 - 1.1) IVSs: 1.5 cm LVIDs: 3.0 cm LVPWs: 1.6 cm LA Diam: 3.3 cm (2.7 - 3.8) LAESV Index (A-L): 25.57 ml/m Ao Diam: 3.2 cm (2.0 - 3.7) AV Cusp: 1.9 cm (1.5 - 2.6) MV EXCURSION: 20.651 mm (> 18.000) MV EF SLOPE: 92 mm/s (70 - 150) EPSS: 2.0 cm MV E Moose: 1.04 m/s MV DecT: 308 ms MV A Moose: 0.55 m/s MV E/A Ratio: 1.91 FINDINGS -------- Sinus rhythm. This was a technically good study. The left ventricular size is normal. There is borderline concentric left ventricular hypertrophy. Overall left ventricular systolic function is mild-moderately impaired with, an EF between 40 - 45 %. Basal inferior LV wall motion is hypokinetic. Basal inferoseptal LV wall motion is hypokinetic. The right ventricle is normal in size. Normal LA size by volume 22+/-6 ml/m2. The right atrium is normal in size. There is mild aortic valve sclerosis. Mild mitral regurgitation is present. The tricuspid valve appears structurally normal. The pulmonic valve was not well visualized. The aortic root size is normal. Normal inferior vena cava with normal inspiratory collapse consistent with estimated right atrial pressure of 5 mmHg. There is no pericardial effusion. CONCLUSIONS -------- 1. Sinus rhythm. 2. There is mild aortic valve sclerosis. 3. Mild mitral regurgitation is present. 4. The tricuspid valve appears structurally normal. 5. The pulmonic valve was not well visualized. 6. The aortic root size is normal. 7. Normal inferior vena cava with normal inspiratory collapse consistent with estimated right atrial pressure of 5 mmHg. 8. There is no pericardial effusion. 9. This was a technically good study. 10. The left ventricular size is normal. 11. There is borderline concentric left ventricular hypertrophy. 12. Basal inferior LV wall motion is hypokinetic. 13. Basal inferoseptal LV wall motion is hypokinetic. 14. The right ventricle is normal in size. 15. Normal LA size by volume 22+/-6 ml/m2. 16. The right atrium is normal in size. REVERSE LOGISTICS ANALYST: Karen Donohue RDCS
--- NOTE | 2017-04-25 13:37 | P.PN ---
Subjective This is a 51-year-old gentleman with no previous PCP and hasn't established to our clinic yet , insurance card delegated myself as PCP,, known history of CAD in 1999 with 4 vessel bypass surgery performed at [facility] with Dr. natarajan, also diabetes mellitus type 2 since 2008 compliant with medications now complaining of diabetic neuropathy, history of psoriasis, COPD, hypertension and hyperlipidemia not medicated at all prior to this current admission. He presents emergency room with multiple complaints include chest discomfort this has been ongoing for several months it is sharp and located in the left sternal border and the lower thoracic region, with a penetrating needle like sensation, also with shortness of breath with dyspnea and exertion for his short walks between 50-100 feet, patient denies any fever she has paresthesias in the lower extremities with pinprick sensation bilateral leg, right groin has an abscess that sounds like it ruptured and has been giving him problems for the past 6 days. Patient denies any PND no fever no chills no cough no aspirate the events patient has lost 25 pounds for the past 7 months with polyuria polydipsia polyphagia. Patient did not have any medical attention secondary to lack of insurance until his insurance card came in this week she denies any focal neurologic events to include headache that diplopia isolated unilateral motor deficits, no hematuria no hematemesis no melena In the emergency room he was seen about symptoms with leukocytosis, glucose of 450, CO2 levels 26, lactic acid levels for review, lipase and d-dimer is are normal initial set of troponin is negative chest x-ray unremarkable, EKG shows normal sinus rhythm with Q waves in 3 and aVF significant for inferior infarct, and no other acute ST-T wave changes noted. Patient will be seen consultation by cardiology, and Dr. Hernandez for debridement of the right groin abscess. Patient was started on IV vancomycin with cultures obtained on the right groin 04/25: Patient's doing better, patient has gone for a stress test today, blood sugars in the high 200s, we will include increasing glimepiride to 2 mg twice a day groin cultures growing group B enterococcus, gram-negative bacilli, presumptive staph aureus Objective - Vital Signs Vital signs: Vital Signs Temp 96.9 F L 04/25/17 08:00 Pulse 78 04/25/17 08:45 Resp 18 04/25/17 08:00 BP 113/70 04/25/17 08:00 Pulse Ox 98 04/25/17 08:00 Intake & Output 04/24/17 04/25/17 04/25/17 18:59 06:59 18:59 Intake Total 1050 1050 Balance 1050 1050 Weight 70.307 kg 63.8 kg 63.8 kg Intake: IV 1050 800 Sodium Chloride 0.9% 1, 800 800 000 ml @ 100 mls/hr IV . Q10H ANA Rx#:[id number] Vancomycin 1,250 mg In 250 Sodium Chloride 0.9% 250 ml @ 125 mls/hr IVPB Q8H ANA Rx#:[id number] Intake, IV Titration 250 Amount Vancomycin 1,250 mg In 250 Sodium Chloride 0.9% 250 ml @ 125 mls/hr IVPB Q8H ANA Rx#:[id number] Other: Voiding Method Toilet # Voids 1 1 - Constitutional General appearance: Present: cooperative, no acute distress - EENT Eyes: Present: anicteric sclerae, EOMI, PERRLA, dentition normal, normal appearance - Cardiovascular Rhythm: regular Heart sounds: normal: S1, S2 Abnormal Heart Sounds: Absent: systolic murmur, diastolic murmur, rub, S3 Gallop , S4 Gallop, click, other - Integumentary Integumentary: Present: calor, normal, normal turgor - Neurologic Neurologic: Present: CNII-XII intact - Musculoskeletal Musculoskeletal: Present: gait normal, strength equal bilaterally - Labs CBC & Chem 7: 04/24/17 11:40 04/24/17 11:40 Labs: Abnormal Lab Results - Last 24 Hours (Table) 04/24/17 04/24/17 04/24/17 Range/Units 11:40 15:15 16:56 POC Glucose (mg/dL) 399 H 303 H (75-99) mg/dL Hemoglobin A1c 14.7 H (4.2-6.1) % Magnesium (1.6-2.3) mg/dL Total Creatine Kinase (55-170) U/L 04/24/17 04/24/17 04/24/17 Range/Units 18:11 21:08 23:52 POC Glucose (mg/dL) 217 H (75-99) mg/dL Hemoglobin A1c (4.2-6.1) % Magnesium (1.6-2.3) mg/dL Total Creatine Kinase 28 L 28 L (55-170) U/L 04/25/17 04/25/17 04/25/17 Range/Units 06:04 06:05 11:21 POC Glucose (mg/dL) 228 H 266 H (75-99) mg/dL Hemoglobin A1c (4.2-6.1) % Magnesium 1.2 L (1.6-2.3) mg/dL Total Creatine Kinase (55-170) U/L Microbiology - Last 24 Hours (Table) 04/24/17 13:25 Gram Stain - Preliminary Groin Wound Culture - Preliminary Presumptive Staph aureus Group D Enterococcus Gram Neg Bacilli Assessment and Plan Plan: 1. Recurrent chest pain multifactorial associated with dyspnea and exertion, patient has multiple risk factors with underlying CAD prior CABG 4 vessel bypass , as well as uncontrolled untreated diabetes mellitus secondary to noncompliance , and current smoking history. Patient will be seen consultation by cardiology , echocardiogram will be done, cardiac troponins, patient would be in need of a stress test most likely chemical stress test secondary to groin abscess, either that of right wrist cardiac cath if needed, patient was seen by cardiology with aspirin 325 mg daily Lipitor 80 mg daily that was started and sublingual nitroglycerin when necessary. Await cardiovascular stress test Reports, await echocardiogram patient started on metoprolol 12.5 mg twice a day 2. Diabetes mellitus type 2, since 1999 without any medical surveillance including medications for the past several years, dietitian to see for diabetic medications, patient was started on glimepiride 1 mg twice a day and hemoglobin A1c will be obtained 3. COPD exacerbation, no oral or IV Solu-Medrol be given, patient will be started on Pulmicort 1 mg twice a day along with albuterol Atrovent patient's sugars currently uncontrolled 4. Right groin crease ruptured abscess, cultures were done, patient was started on vancomycin and Rocephin. Cultures are back, consult Dr. Brannon for debridement and evaluation of the abscess 5. Noncompliance to medical regimen and lack of medical supervision since 1999 again patient was advocated to comply with medication regimen for secondary and tertiary prevention 6. Tobacco exposure patient will be offered nicotine patches and assist with cessation program 7. Diabetic neuropathy gabapentin 100 mg 3 times a day would be started with be titrated as an outpatient 8. History of psoriasis currently stable no medication changes 8. Expected length of stay 3 nights CODE STATUS full GI prophylaxis Pepcid DVT prophylaxis KATHIE hose and early ambulation
--- NOTE | 2017-04-25 14:18 | ECHOS ---
STRESS ECHOCARDIOGRAM INDICATIONS:: Chest pain. MEDICATIONS:: - BASELINE HEART RATE:: 69 BASELINE BLOOD PRESSURE:: 100/55 MAXIMUM HEART RATE:: 135 MAXIMUM BLOOD PRESSURE:: 193/62 85% MPHR:: 145 100% MPHR:: 171 METS:: - MAXIMUM STAGE REACHED:: 5 TOTAL EXERCISE TIME:: 15:30 CLINICAL INFORMATION:: Baseline EKG revealed a sinus mechanism with some nondiagnostic inferior Q-waves. There is also some poor R-wave progression over precordial leads. His prior NH involving the anteroseptal and inferior wall cannot be excluded. With dobutamine administration and also atropine as per protocol, heart rate went up to 135 beats per minute which is 78% of predicted maximal. He did not have any arrhythmia or angina. EKG remained inconclusive with evidence of old NH but no ST-segment changes are noted. This is an inconclusive stress test by EKG criteria with dobutamine stress. Baseline echo images revealed hypokinesia of the anteroseptal and inferobasal wall of the left ventricle. With dobutamine administration, there was progressive increase in contractility but overall the increased contractility still seemed somewhat sluggish in all areas. Possibility of a combination of nonischemic and ischemic cardiomyopathy should be considered. There is no clearcut focal areas of hypokinesia with a dobutamine stress noted at 78% of predicted maximal heart rate. FINAL IMPRESSION: 1. By EKG criteria, this is an inconclusive dobutamine stress test because of inadequate trophic response. 2. Inconclusive dobutamine stress echo but overall the contractility is not as robust and possibility of a combination of ischemic and nonischemic cardiomyopathy should be considered. Discussed with Dr. Walker. MMKIMBERLY / FARZANEHN: [id number] /
[2017-04-25 16:31] LABS: Glucose,Whole Blood 289 mg/dL (75-99)
[2017-04-25] MEDS ORDERED: GLIMEPIRIDE 2 MG TAB PO SCH (17:30)
[2017-04-25 20:33] LABS: Glucose,Whole Blood 328 mg/dL (75-99)
[2017-04-25] MEDS ORDERED: INSULIN LISPRO (humaLOG) 300 UNIT/3 ML VIAL SQ ONE (21:51)
[2017-04-25] MEDS ORDERED: Magnesium Replacement Protocol 1 EACH MISC MISCELLANE PRN (21:52)
[2017-04-26] MEDS: MAGNESIUM SULFATE-D5W PMX 1 GM in DEXTROSE/WATER 1 100ML.BAG IVPB SCH ×3 (00:04→02:31)
[2017-04-26] MEDS: HYDROcodone/APAP 7.5-325MG 1 EACH TAB PO PRN ×5 (04:32→20:19)
[2017-04-26] MEDS: SODIUM CHLORIDE 0.9% 1,000 ML IV SCH ×2 (04:52→12:30)
[2017-04-26] MEDS ORDERED: VANCOMYCIN TROUGH DUE 1 EACH MISC MISCELLANE ONE (05:00)
[2017-04-26] MEDS: VANCOMYCIN 1,250 MG in SODIUM CHLORIDE 0.9% 250 ML IVPB SCH (06:06)
[2017-04-26 06:28] LABS: Anion Gap 8 mmol/L; Blood Urea Nitrogen 13 mg/dL (9-20); Calcium 8.2 mg/dL (8.4-10.2); Carbon Dioxide 25 mmol/L (22-30); Chloride 100 mmol/L (98-107); Glucose 373 mg/dL (74-99); Magnesium 1.6 mg/dL (1.6-2.3); Non-African American GFR(MDRD) >60 (>60 ml/min/1.73 sqM); Potassium 4.6 mmol/L (3.5-5.1); Sodium 133 mmol/L (137-145)
[2017-04-26] MEDS: INSULIN LISPRO (humaLOG) 300 UNIT/3 ML VIAL SQ SCH ×3 (06:29→17:18)
[2017-04-26] MEDS: GLIMEPIRIDE 4 MG TAB PO SCH ×2 (06:29→17:18)
[2017-04-26] MEDS: NICOTINE 21MG/24HR PATCH TRANSDERM SCH (06:30)
[2017-04-26 06:31] LABS: Glucose,Whole Blood 354 mg/dL (75-99)
[2017-04-26] MEDS: ATORVASTATIN 80 MG TAB PO SCH (08:29)
[2017-04-26] MEDS: METOPROLOL TARTRATE 12.5 MG TAB PO SCH ×2 (08:29→20:33)
[2017-04-26] MEDS: ASPIRIN 325 MG TAB PO SCH (08:29)
[2017-04-26] MEDS: ISOSORBIDE MONONITRATE ER 30 MG TAB.ER.24H PO SCH (08:29)
[2017-04-26] MEDS: GABAPENTIN 100 MG CAP PO SCH ×3 (08:29→20:34)
[2017-04-26] MEDS ORDERED: HYDROmorphone 1 MG/ML 1 ML SYRINGE IVP STA (09:01)
--- NOTE | 2017-04-26 09:42 | P.PN ---
Subjective Principal diagnosis: Chest pain This is a pleasant 51-year-old gentleman with a history of CAD status post CABG in 1999 and diabetes as well as noncompliance. 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 Complaints upon presentation included exertional dyspnea as well as sharp atypical chest discomfort and overall not feeling well. Troponins are negative 3. Patient underwent dobutamine stress echo yesterday reaching 78% of predicted maximum heart rate without ST segment changes. Baseline echo images showed hypokinesis of the anteroseptal and inferior basal wall of the left ventricle with some progressive increase in contractility with dobutamine administration. 2-D echo with Doppler shows mild to moderately impaired LV systolic function with an ejection fraction between 40-45%. Patient had been doing well through the night at the time of my examination complains of some mild chest pressure. Patient is refusing nitroglycerin thinking that this is likely related to anxiety. He has not been up out of bed much and the pain occurred at rest. He seems to be breathing somewhat better today however continues to complain of some shortness of breath with activity. He is currently on aspirin 325 mg by mouth daily, atorvastatin 80 mg by mouth daily, and metoprolol tartrate 12.5 mg by mouth twice a day as well as Imdur 30 mg by mouth daily. Vital signs have been stable. Magnesium is up to 1.60 continues to be replaced. Objective - Vital Signs Vital signs: Vital Signs Temp 97.8 F 04/26/17 08:33 Pulse 78 04/26/17 08:33 Resp 18 04/26/17 08:33 BP 117/70 04/26/17 08:33 Pulse Ox 99 04/26/17 08:33 Intake & Output 04/25/17 04/26/17 04/26/17 18:59 06:59 18:59 Intake Total 1230 860 240 Balance 1230 860 240 Weight 63.8 kg 63.4 kg Intake: IV 800 500 Sodium Chloride 0.9% 1, 800 500 000 ml @ 100 mls/hr IV . Q10H ANA Rx#:[id number] Intake, IV Titration 250 Amount Vancomycin 1,250 mg In 250 Sodium Chloride 0.9% 250 ml @ 125 mls/hr IVPB Q8H ANA Rx#:[id number] Oral 180 360 240 Other: Voiding Method Toilet Toilet # Voids 3 0 - Exam PHYSICAL EXAMINATION: HEENT: Head is atraumatic, normocephalic. Pupils equal, round. Neck is supple. There is no elevated jugular venous pressure. HEART EXAMINATION: Heart sounds regular, S1 and S2 normal. No murmur or gallop heard. CHEST EXAMINATION: Lungs are clear to auscultation and precussion. No chest wall tenderness is noted on palpation or with deep breathing. ABDOMEN: Soft, nontender. Bowel sounds are heard. No organomegaly noted. EXTREMITIES: 2+ peripheral pulses with no evidence of peripheral edema and no calf tenderness noted. Cellulitis noted to thigh. NEUROLOGIC patient is awake, alert and oriented x3. . - Labs CBC & Chem 7: 04/24/17 11:40 04/26/17 05:22 Labs: Abnormal Lab Results - Last 24 Hours (Table) 04/25/17 04/25/17 04/25/17 Range/Units 11:21 16:28 20:13 Sodium (137-145) mmol/L Glucose (74-99) mg/dL POC Glucose (mg/dL) 266 H 289 H 328 H (75-99) mg/dL Calcium (8.4-10.2) mg/dL 04/26/17 04/26/17 Range/Units 05:22 06:23 Sodium 133 L (137-145) mmol/L Glucose 373 H (74-99) mg/dL POC Glucose (mg/dL) 354 H (75-99) mg/dL Calcium 8.2 L (8.4-10.2) mg/dL Microbiology - Last 24 Hours (Table) 04/24/17 13:25 Blood Culture - Preliminary Blood No Growth after 24 hours 04/24/17 13:25 Gram Stain - Preliminary Groin Wound Culture - Preliminary Presumptive Staph aureus Group D Enterococcus Gram Neg Bacilli Assessment and Plan Plan: 1 Exertional shortness of breath #2 diabetes mellitus #3 chest pressure #4 cellulitis of the leg #5 cardiomyopathy, based on results of dobutamine stress echo appears to be combination of both ischemic and nonischemic Patient has had recurrent chest discomfort, we'll obtain at EKG. Give the patient 0.5 mg of Dilaudid IV push 1. We'll continue to optimize his medical therapy. Further recommendations to follow. The above dictated assessment and findings were discussed with signing physician. The impression and plan of care have been directed as dictated. Cristy Ma, Nurse Practitioner, acting as scribe for signing physician.
[2017-04-26] MEDS: IPRATROPIUM-ALBUTEROL 3 ML NEB INHALATION SCH ×3 (10:51→20:35)
[2017-04-26] MEDS: BUDESONIDE 0.5 MG/2 ML NEBU INHALATION SCH ×2 (10:51→20:35)
[2017-04-26 11:58] LABS: Glucose,Whole Blood 237 mg/dL (75-99)
--- NOTE | 2017-04-26 12:12 | P.PN ---
Subjective This is a 51-year-old gentleman with no previous PCP and hasn't established to our clinic yet , insurance card delegated myself as PCP,, known history of CAD in 1999 with 4 vessel bypass surgery performed at [facility] with Dr. natarajan, also diabetes mellitus type 2 since 2008 compliant with medications now complaining of diabetic neuropathy, history of psoriasis, COPD, hypertension and hyperlipidemia not medicated at all prior to this current admission. He presents emergency room with multiple complaints include chest discomfort this has been ongoing for several months it is sharp and located in the left sternal border and the lower thoracic region, with a penetrating needle like sensation, also with shortness of breath with dyspnea and exertion for his short walks between 50-100 feet, patient denies any fever she has paresthesias in the lower extremities with pinprick sensation bilateral leg, right groin has an abscess that sounds like it ruptured and has been giving him problems for the past 6 days. Patient denies any PND no fever no chills no cough no aspirate the events patient has lost 25 pounds for the past 7 months with polyuria polydipsia polyphagia. Patient did not have any medical attention secondary to lack of insurance until his insurance card came in this week she denies any focal neurologic events to include headache that diplopia isolated unilateral motor deficits, no hematuria no hematemesis no melena In the emergency room he was seen about symptoms with leukocytosis, glucose of 450, CO2 levels 26, lactic acid levels for review, lipase and d-dimer is are normal initial set of troponin is negative chest x-ray unremarkable, EKG shows normal sinus rhythm with Q waves in 3 and aVF significant for inferior infarct, and no other acute ST-T wave changes noted. Patient will be seen consultation by cardiology, and Dr. Hernandez for debridement of the right groin abscess. Patient was started on IV vancomycin with cultures obtained on the right groin 04/25: Patient's doing better, patient has gone for a stress test today, blood sugars in the high 200s, we will include increasing glimepiride to 2 mg twice a day groin cultures growing group B enterococcus, gram-negative bacilli, presumptive staph aureus 04/26: Patient's doing better, shortness of breath is improved with inhalers, once better, maybe honey on wounds, blood sugars are still significantly elevated despite glimepiride 4 mg twice a day, we'll going to initiate Lantus 15 units daily with diabetic medication for insulin instruction and an A1c 14 Objective - Vital Signs Vital signs: Vital Signs Temp 97.8 F 04/26/17 11:53 Pulse 78 04/26/17 11:53 Resp 18 04/26/17 11:53 BP 111/68 04/26/17 11:53 Pulse Ox 99 04/26/17 11:53 Intake & Output 04/25/17 04/26/17 04/26/17 18:59 06:59 18:59 Intake Total 1230 860 240 Balance 1230 860 240 Weight 63.8 kg 63.4 kg Intake: IV 800 500 Sodium Chloride 0.9% 1, 800 500 000 ml @ 100 mls/hr IV . Q10H ANA Rx#:[id number] Intake, IV Titration 250 Amount Vancomycin 1,250 mg In 250 Sodium Chloride 0.9% 250 ml @ 125 mls/hr IVPB Q8H ANA Rx#:[id number] Oral 180 360 240 Other: Voiding Method Toilet Toilet # Voids 3 0 - Constitutional General appearance: Present: cooperative, no acute distress - EENT Eyes: Present: anicteric sclerae, EOMI, PERRLA, dentition normal, normal appearance ENT: Present: hearing grossly normal, normal oropharynx - Neck Neck: Present: normal ROM - Respiratory Respiratory: bilateral: CTA, negative: diminished, dullness, rales, rhonchi - Cardiovascular Rhythm: regular Heart sounds: normal: S1, S2 Abnormal Heart Sounds: Absent: systolic murmur, diastolic murmur, rub, S3 Gallop , S4 Gallop, click, other - Gastrointestinal General gastrointestinal: Present: normal bowel sounds, soft - Integumentary Integumentary: Present: normal, normal turgor - Neurologic Neurologic: Present: CNII-XII intact - Musculoskeletal Musculoskeletal: Present: gait normal, strength equal bilaterally - Psychiatric Psychiatric: Present: A&O x's 3, appropriate affect, intact judgment & insight - Labs CBC & Chem 7: 04/24/17 11:40 04/26/17 05:22 Labs: Abnormal Lab Results - Last 24 Hours (Table) 04/25/17 04/25/17 04/26/17 Range/Units 16:28 20:13 05:22 Sodium 133 L (137-145) mmol/L Glucose 373 H (74-99) mg/dL POC Glucose (mg/dL) 289 H 328 H (75-99) mg/dL Calcium 8.2 L (8.4-10.2) mg/dL 04/26/17 04/26/17 Range/Units 06:23 11:37 Sodium (137-145) mmol/L Glucose (74-99) mg/dL POC Glucose (mg/dL) 354 H 237 H (75-99) mg/dL Calcium (8.4-10.2) mg/dL Microbiology - Last 24 Hours (Table) 04/24/17 13:25 Blood Culture - Preliminary Blood No Growth after 24 hours 04/24/17 13:25 Gram Stain - Preliminary Groin Wound Culture - Preliminary Presumptive Staph aureus Group D Enterococcus Gram Neg Bacilli Assessment and Plan Plan: 1. Recurrent chest pain multifactorial associated with dyspnea and exertion, patient has multiple risk factors with underlying CAD prior CABG 4 vessel bypass , as well as uncontrolled untreated diabetes mellitus secondary to noncompliance , and current smoking history. Patient will be seen consultation by cardiology , echocardiogram will be done, cardiac troponins, patient would be in need of a stress test most likely chemical stress test secondary to groin abscess, either that of right wrist cardiac cath if needed, patient was seen by cardiology with aspirin 325 mg daily Lipitor 80 mg daily that was started and sublingual nitroglycerin when necessary. Await cardiovascular stress test Reports, await echocardiogram patient started on metoprolol 12.5 mg twice a day. 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 Diabetes mellitus type 2, since 1999 without any medical surveillance including medications for the past several years, dietitian to see for diabetic medications, patient was started on glimepiride 1 mg twice a day and hemoglobin A1c at 14, and to his is started at 15 units daily, diabetic instruction for insulin teaching 3. COPD exacerbation, no oral or IV Solu-Medrol be given, patient will be started on Pulmicort 1 mg twice a day along with albuterol Atrovent patient's sugars currently uncontrolled 4. Right groin crease ruptured abscess, cultures were done, patient was started on vancomycin and Rocephin. Cultures are back, consult Dr. Brannon for debridement and evaluation of the abscess. On medical any 5. Noncompliance to medical regimen and lack of medical supervision since 1999 again patient was advocated to comply with medication regimen for secondary and tertiary prevention 6. Tobacco exposure patient will be offered nicotine patches and assist with cessation program 7. Diabetic neuropathy gabapentin 100 mg 3 times a day would be started with be titrated as an outpatient 8. History of psoriasis currently stable no medication changes 8. Expected length of stay 3 nights CODE STATUS full GI prophylaxis Pepcid DVT prophylaxis KATHIE hose and early ambulation
[2017-04-26] MEDS: DOCUSATE 100 MG CAP PO SCH (12:23)
[2017-04-26] MEDS: LISINOPRIL 2.5 MG TAB PO SCH (12:24)
[2017-04-26] MEDS: VANCOMYCIN 1,000 MG in SODIUM CHLORIDE 0.9% 250 ML IVPB SCH ×2 (13:49→21:06)
--- NOTE | 2017-04-26 13:52 | P.PN ---
Progress Note - Text The patient states he feels better. On exam his cellulitis has improved. There is no evidence of any abscess. The patient will continue IV antibiotic. He'll be discharged home per medicine.
[2017-04-26] MEDS ORDERED: ALPRAZolam 0.25 MG TAB PO PRN (14:24)
[2017-04-26] MEDS ORDERED: ALPRAZolam 0.5 MG TAB PO STA (14:24)
[2017-04-26 16:56] LABS: Glucose,Whole Blood 222 mg/dL (75-99)
[2017-04-26] MEDS ORDERED: INSULIN GLARGINE 100 UNIT/ML 10 ML VIAL SQ SCH (21:00)
[2017-04-26] MEDS ORDERED: MONTELUKAST 10 MG TAB PO SCH (21:00)
[2017-04-26 21:28] LABS: Glucose,Whole Blood 270 mg/dL (75-99)
[2017-04-27] MEDS: SODIUM CHLORIDE 0.9% 1,000 ML IV SCH ×2 (02:02→11:43)
[2017-04-27] MEDS: HYDROcodone/APAP 7.5-325MG 1 EACH TAB PO PRN ×2 (02:03→07:06)
[2017-04-27 06:56] LABS: Glucose,Whole Blood 230 mg/dL (75-99)
[2017-04-27] MEDS: VANCOMYCIN 1,000 MG in SODIUM CHLORIDE 0.9% 250 ML IVPB SCH (06:56)
[2017-04-27] MEDS: INSULIN LISPRO (humaLOG) 300 UNIT/3 ML VIAL SQ SCH ×2 (06:57→12:00)
[2017-04-27] MEDS: GLIMEPIRIDE 4 MG TAB PO SCH (06:57)
[2017-04-27] MEDS: IPRATROPIUM-ALBUTEROL 3 ML NEB INHALATION SCH (07:17)
[2017-04-27] MEDS: BUDESONIDE 0.5 MG/2 ML NEBU INHALATION SCH (07:17)
[2017-04-27] MEDS: METOPROLOL TARTRATE 12.5 MG TAB PO SCH (08:17)
[2017-04-27] MEDS: ATORVASTATIN 80 MG TAB PO SCH (08:17)
[2017-04-27] MEDS: NICOTINE 21MG/24HR PATCH TRANSDERM SCH (08:17)
[2017-04-27] MEDS: DOCUSATE 100 MG CAP PO SCH (08:17)
[2017-04-27] MEDS: ISOSORBIDE MONONITRATE ER 30 MG TAB.ER.24H PO SCH (08:17)
[2017-04-27] MEDS: LISINOPRIL 2.5 MG TAB PO SCH (08:17)
[2017-04-27] MEDS: ASPIRIN 325 MG TAB PO SCH (08:17)
[2017-04-27] MEDS: GABAPENTIN 100 MG CAP PO SCH (08:17)
[2017-04-27 08:25] VITALS: BP 138/74; PULSE 76; TEMP 97.7
--- NOTE | 2017-04-27 08:58 | P.PN ---
Progress Note - Text The patient states he feels better. His cellulitis is improved. Patient will be discharged home per medicine.
--- NOTE | 2017-04-27 09:32 | P.PN ---
Subjective Principal diagnosis: Patient is doing better his chest pain-free he had a negative dobutamine echo stable to be discharged home with outpatient follow-up with cardiology in 2 weeks Objective - Vital Signs Vital signs: Vital Signs Temp 97.7 F 04/27/17 08:17 Pulse 76 04/27/17 08:17 Resp 18 04/27/17 08:17 BP 138/74 04/27/17 08:17 Pulse Ox 100 04/27/17 08:17 Intake & Output 04/26/17 04/27/17 04/27/17 18:59 06:59 18:59 Intake Total 1510 572 Output Total 500 Balance 1510 -500 572 Intake: IV 850 350 Sodium Chloride 0.9% 1, 600 100 000 ml @ 100 mls/hr IV . Q10H ANA Rx#:[id number] Vancomycin 1,250 mg In 250 250 Sodium Chloride 0.9% 250 ml @ 125 mls/hr IVPB Q8H ANA Rx#:[id number] Oral 660 222 Output: Urine 500 Other: Voiding Method Toilet Toilet Toilet # Voids 1 - Exam Patient is comfortable at rest vital signs are stable there is no jugular venous distention carotid upstroke is normal there is no bruit chest exam reveals good air entry bilaterally heart exam reveals first and second heart sounds abdomen is soft exam extremities did not reveal any edema per for pulses are felt - Labs CBC & Chem 7: 04/24/17 11:40 04/26/17 05:22 Labs: Abnormal Lab Results - Last 24 Hours (Table) 04/26/17 04/26/17 04/26/17 Range/Units 11:37 16:38 20:23 POC Glucose (mg/dL) 237 H 222 H 270 H (75-99) mg/dL 04/27/17 Range/Units 06:51 POC Glucose (mg/dL) 230 H (75-99) mg/dL Microbiology - Last 24 Hours (Table) 04/24/17 13:25 Blood Culture - Preliminary Blood No Growth after 48 hours 04/24/17 13:25 Gram Stain - Final Groin Wound Culture - Final Staphylococcus aureus Enterococcus faecalis Escherichia coli Assessment and Plan Plan: CAD status post CABG cellulitis Patient is chest pain-free stable hemodynamically ready to be discharged home. I will follow the patient in 2 weeks time. Review the bypass surgery report
[2017-04-27 11:29] LABS: Glucose,Whole Blood 202 mg/dL (75-99)
[2017-04-29 14:19] LABS: Alternaria alternata IgE <0.35 kU/L (<0.35); Asperg. fumagatus IgE <0.35 kU/L (<0.35); Asperg. fumagatus IgE Class CLASS 0; Birch(Com.Silvr) IgE Class CLASS 0; Cat Epith & Dander IgE <0.35 kU/L (<0.35); Cat Epith & Dander IgE Class CLASS 0; Clad herbarum IgE <0.35 kU/L (<0.35); Clad herbarum IgE Class CLASS 0; Common Ragweed IgE Class CLASS 0; Dermato. Pteronyssinus Class CLASS 0; Dermato. Pteronyssinus IgE <0.35 kU/L (<0.35); Dermato. farinae IgE <0.35 kU/L (<0.35); Dermato. farinae IgE Class CLASS 0; IgE (Allergen) 88.1 IU/mL (<114.0); Maple (Box Elder) IgE <0.35 kU/L (<0.35); Maple (Box Elder) IgE Class CLASS 0; Mountain Cedar IgE <0.35 kU/L (<0.35); Mountain Cedar IgE Class CLASS 0; Mouse Urine IgE Class CLASS 0; Mouse Urine Proteins,IgE <0.35 kU/L (<0.35); Mulberry IgE Class CLASS 0; Nettle IgE <0.35 kU/L (<0.35); Nettle IgE Class CLASS 0; Oak IgE <0.35 kU/L (<0.35); Penicillium notatum IgE Class CLASS 0; Rough Marshelder IgE <0.35 kU/L (<0.35); Rough Marshelder IgE Class CLASS 0; Timothy Grass IgE <0.35 kU/L (<0.35); Timothy Grass IgE Class CLASS 0; White Ash IgE Class CLASS 0
== END 2017-04-27 12:11 | disposition home or self-care (01) | DRG 603 ==
LOC: EC 11:21 → 6SEL 12:50
PROVIDERS: ADMIT Family Medicine; ATTEND Family Medicine
DX: L02.214 Cutaneous abscess of groin (principal); E11.40 Type 2 diabetes mellitus with diabetic neuropathy, unspecified; J44.1 Chronic obstructive pulmonary disease with (acute) exacerbation; E11.65 Type 2 diabetes mellitus with hyperglycemia; Z79.4 Long term (current) use of insulin; E78.5 Hyperlipidemia, unspecified; E83.42 Hypomagnesemia; F17.210 Nicotine dependence, cigarettes, uncomplicated; F32.9 Major depressive disorder, single episode, unspecified; F41.9 Anxiety disorder, unspecified; I10 Essential (primary) hypertension; I25.10 Atherosclerotic heart disease of native coronary artery without angina pectoris; I25.2 Old myocardial infarction; L03.314 Cellulitis of groin; Z91.19 Patient's noncompliance with other medical treatment and regimen; Z95.1 Presence of aortocoronary bypass graft; R63.4 Abnormal weight loss; Z68.22 Body mass index [BMI] 22.0-22.9, adult; Z71.6 Tobacco abuse counseling; L40.9 Psoriasis, unspecified; R59.0 Localized enlarged lymph nodes; G89.29 Other chronic pain; R51 Headache; F12.90 Cannabis use, unspecified, uncomplicated; G47.00 Insomnia, unspecified; R07.9 Chest pain, unspecified; Z91.14 Patient's other noncompliance with medication regimen
CPT/HCPCS: 36415; 71020; 80048; 80053; 80061; 80202; 82103; 82104; 82550; 82553; 82785; 83036; 83690; 83735; 84484; 85025; 85379; 85610; 85730; 86001; 86003; 86606; 86609; 87040; 87070; 87077; 87186; 87205; 93005; 93017; 93306; 93350; 94640; 94760; 96365; 96366; 96368; 99291

== ENCOUNTER 2017-06-12 18:15 | Observation (INO) | payer OTHER ==
[2017-06-12] MEDS ORDERED: SODIUM CHLORIDE 0.9% 1,000 ML IV STA (18:21)
--- NOTE | 2017-06-12 19:07 | ED ---
General Adult HPI - General Chief complaint: Chest Pain Stated complaint: Chest/Back Pain Time Seen by Provider: 06/12/17 18:21 Source: patient, RN notes reviewed, old records reviewed Mode of arrival: wheelchair Limitations: no limitations - History of Present Illness Initial comments: This is a 51-year-old male to the ER for evaluation. This patient presents today for evaluation regarding chest pain. Patient has severe right-sided chest pain and right-sided flank pain. Patient has history of heart disease diabetes and hypertension. Patient states he had recent admission where he was told he may have had an abnormal stress test. Patient is also an outpatient ultrasound recently to diagnose causes of flank pain and chest pain. Unable to find cause. No nausea vomiting, patient does admit to shortness of breath and does continue to smoke. - Related Data Home Medications Medication Instructions Recorded Confirmed Albuterol Inhaler [Ventolin Hfa 1 - 2 puff INHALATION RT-QID PRN 06/12/17 Inhaler] Aspirin EC [Ecotrin] 325 mg PO DAILY 06/12/17 06/12/17 Budesonide-Formot 160-4.5 Mcg 2 puff INHALATION RT-BID 06/12/17 06/12/17 [Symbicort 160-4.5 Mcg Inhaler] Isosorbide Dinitrate 30 mg PO DAILY 06/12/17 06/12/17 Metoprolol Tartrate [Lopressor] 12.5 mg PO BID 06/12/17 06/12/17 Naproxen Sodium [Aleve] 220 mg PO BID PRN 06/12/17 06/12/17 Orphenadrine [Norflex] 100 mg PO BID PRN 06/12/17 06/12/17 Sennosides-Docusate Sodium 1 tab PO DAILY 06/12/17 06/12/17 [Senokot-S] metFORMIN HCL 1,000 mg PO BID 06/12/17 06/12/17 Previous Rx's Medication Instructions Recorded Atorvastatin [Lipitor] 80 mg PO DAILY #30 tab 04/27/17 Gabapentin [Neurontin] 100 mg PO TID #90 cap 04/27/17 Glimepiride [Amaryl] 4 mg PO AC-BID #60 tab 04/27/17 Lisinopril [Zestril] 2.5 mg PO DAILY #30 tab 04/27/17 Montelukast [Singulair] 10 mg PO HS #30 tab 04/27/17 Nitroglycerin Sl Tabs [Nitrostat] 0.4 mg SUBLINGUAL Q5M PRN #25 tab 04/27/17 traMADol HCl [Ultram] 50 mg PO Q6H PRN #90 tab 04/27/17 Allergies Allergy/AdvReac Type Severity Reaction Status Date / Time No Known Allergies Allergy Verified 06/12/17 18:53 Review of Systems ROS Statement: Those systems with pertinent positive or pertinent negative responses have been documented in the HPI. ROS Other: All systems not noted in ROS Statement are negative. Past Medical History Past Medical History: Coronary Artery Disease (CAD), Chest Pain / Angina, Diabetes Mellitus, Hypertension Additional Past Medical History / Comment(s): CONSTIPATED- "LAST BM 5-6 DAYS AGO ",ONLY HAS 2 TEETH .PSORIASES Last Myocardial Infarction Date:: 1999 History of Any Multi-Drug Resistant Organisms: None Reported Past Surgical History: Appendectomy, Cholecystectomy, Coronary Bypass/CABG Additional Past Surgical History / Comment(s): Lumbar disc surgery with cage, left shoulder scope Past Anesthesia/Blood Transfusion Reactions: No Reported Reaction Past Psychological History: Depression Smoking Status: Current every day smoker - Past Family History Father History Unknown: Yes (Alive has dementia and lumbar disc disease) Family Medical History: Dementia Mother History Unknown: Yes (Alive has cancer possibly throat unknown pathology) Family Medical History: Cancer Brother(s) History Unknown: Yes (Brother from brain mass at age 38) Sister(s) History Unknown: Yes (Depression) Daughter(s) History Unknown: Yes (Healthy 1 daughter) Son(s) History Unknown: Yes (Healthy 5 sons) General Exam Limitations: no limitations General appearance: alert, in no apparent distress, anxious Head exam: Present: atraumatic, normocephalic, normal inspection Eye exam: Present: normal appearance, PERRL, EOMI. Absent: scleral icterus, conjunctival injection, periorbital swelling ENT exam: Present: normal exam, mucous membranes moist Neck exam: Present: normal inspection. Absent: tenderness, meningismus, lymphadenopathy Respiratory exam: Present: normal lung sounds bilaterally. Absent: respiratory distress, wheezes, rales, rhonchi, stridor Cardiovascular Exam: Present: normal rhythm, tachycardia, normal heart sounds. Absent: systolic murmur, diastolic murmur, rubs, gallop, clicks GI/Abdominal exam: Present: soft, normal bowel sounds. Absent: distended, tenderness, guarding, rebound, rigid Extremities exam: Present: normal inspection, full ROM, normal capillary refill. Absent: tenderness, pedal edema, joint swelling, calf tenderness Back exam: Present: normal inspection Neurological exam: Present: alert, oriented X3, CN II-XII intact Psychiatric exam: Present: normal affect, normal mood Skin exam: Present: warm, dry, intact, normal color. Absent: rash Course Vital Signs 06/12/17 06/12/17 18:17 20:27 Temperature 97.2 F L Pulse Rate 103 H 86 Respiratory 18 18 Rate Blood Pressure 126/94 167/77 O2 Sat by Pulse 100 97 Oximetry - Reevaluation(s) Reevaluation #1: 06/12/17 21:35 Medical records were thoroughly reviewed including outpatient ultrasound, prior hospitalization regarding chest pain Reevaluation #2: 06/12/17 21:35 Patient's pain at this time is controlled EKG Findings - EKG Comments: EKG Findings:: EKG shows normal sinus rhythm rate 82, AK 122, QRS 104, QTc 462 Medical Decision Making - Medical Decision Making 51 male to ER for evaluation of persistent chest pain, possibly abnormal stress test, patient is going to adequate outpatient follow-up to as to what causes this chest pain. CT is negative we will add ultrasound of right upper quadrant gallbladder, patient will be admitted for cardiac observation - Lab Data Result diagrams: 06/12/17 19:01 06/12/17 19:01 Lab Results 06/12/17 06/12/17 06/12/17 Range/Units 19:01 19:01 19:01 WBC 9.9 (3.8-10.6) k/uL RBC 5.51 (4.30-5.90) m/uL Hgb 16.0 (13.0-17.5) gm/dL Hct 48.6 (39.0-53.0) % MCV 88.3 (80.0-100.0) fL MCH 29.0 (25.0-35.0) pg MCHC 32.9 (31.0-37.0) g/dL RDW 14.2 (11.5-15.5) % Plt Count 218 (150-450) k/uL Neutrophils % 69 % Lymphocytes % 19 % Monocytes % 7 % Eosinophils % 3 % Basophils % 0 % Neutrophils # 6.9 (1.3-7.7) k/uL Lymphocytes # 1.9 (1.0-4.8) k/uL Monocytes # 0.7 (0-1.0) k/uL Eosinophils # 0.3 (0-0.7) k/uL Basophils # 0.0 (0-0.2) k/uL PT (9.0-12.0) sec INR (<1.2) APTT (22.0-30.0) sec Sodium 135 L (137-145) mmol/L Potassium 5.1 (3.5-5.1) mmol/L Chloride 97 L (98-107) mmol/L Carbon Dioxide 28 (22-30) mmol/L Anion Gap 10 mmol/L BUN 18 (9-20) mg/dL Creatinine 0.87 (0.66-1.25) mg/dL Est GFR (MDRD) Af Amer >60 (>60 ml/min/1.73 sqM) Est GFR (MDRD) Non-Af >60 (>60 ml/min/1.73 sqM) Glucose 266 H (74-99) mg/dL Calcium 10.0 (8.4-10.2) mg/dL Magnesium 1.3 L (1.6-2.3) mg/dL Total Bilirubin 0.6 (0.2-1.3) mg/dL AST 22 (17-59) U/L ALT 28 (21-72) U/L Alkaline Phosphatase 112 (38-126) U/L Total Creatine Kinase 35 L (55-170) U/L CK-MB (CK-2) 0.5 (0.0-2.4) ng/mL CK-MB (CK-2) Rel Index 1.4 Troponin I <0.012 (0.000-0.034) ng/mL NT-Pro-B Natriuret Pep pg/mL Total Protein 6.9 (6.3-8.2) g/dL Albumin 4.2 (3.5-5.0) g/dL Lipase (23-300) U/L 06/12/17 06/12/17 06/12/17 Range/Units 19:01 19:01 19:01 WBC (3.8-10.6) k/uL RBC (4.30-5.90) m/uL Hgb (13.0-17.5) gm/dL Hct (39.0-53.0) % MCV (80.0-100.0) fL MCH (25.0-35.0) pg MCHC (31.0-37.0) g/dL RDW (11.5-15.5) % Plt Count (150-450) k/uL Neutrophils % % Lymphocytes % % Monocytes % % Eosinophils % % Basophils % % Neutrophils # (1.3-7.7) k/uL Lymphocytes # (1.0-4.8) k/uL Monocytes # (0-1.0) k/uL Eosinophils # (0-0.7) k/uL Basophils # (0-0.2) k/uL PT 10.8 (9.0-12.0) sec INR 1.1 (<1.2) APTT 24.2 (22.0-30.0) sec Sodium (137-145) mmol/L Potassium (3.5-5.1) mmol/L Chloride (98-107) mmol/L Carbon Dioxide (22-30) mmol/L Anion Gap mmol/L BUN (9-20) mg/dL Creatinine (0.66-1.25) mg/dL Est GFR (MDRD) Af Amer (>60 ml/min/1.73 sqM) Est GFR (MDRD) Non-Af (>60 ml/min/1.73 sqM) Glucose (74-99) mg/dL Calcium (8.4-10.2) mg/dL Magnesium (1.6-2.3) mg/dL Total Bilirubin (0.2-1.3) mg/dL AST (17-59) U/L ALT (21-72) U/L Alkaline Phosphatase (38-126) U/L Total Creatine Kinase (55-170) U/L CK-MB (CK-2) (0.0-2.4) ng/mL CK-MB (CK-2) Rel Index Troponin I (0.000-0.034) ng/mL NT-Pro-B Natriuret Pep 307 pg/mL Total Protein (6.3-8.2) g/dL Albumin (3.5-5.0) g/dL Lipase 66 (23-300) U/L - Radiology Data Radiology results: report reviewed (Chest x-ray negative, CTA abdomen and pelvis Kirk chest is negative), image reviewed Critical Care Time Critical Care Time: Yes Total Critical Care Time: 31 Disposition Clinical Impression: Chest pain Disposition: ADMITTED IP TO THIS [facility] Condition: Fair
[2017-06-12 19:14] LABS: Basophils % (A) 0 %; CH 29.8; Eosinophils # (A) 0.3 k/uL (0-0.7); Eosinophils % (A) 3 %; HCT 48.6 % (39.0-53.0); Luc # (Auto) 0.17; Luc % (Auto) 2; Lymphocytes # (A) 1.9 k/uL (1.0-4.8); Lymphocytes % (A) 19 %; MCHC 32.9 g/dL (31.0-37.0); MCV 88.3 fL (80.0-100.0); Mean Platelet Volume 7.9; Monocytes # (A) 0.7 k/uL (0-1.0); Monocytes % (A) 7 %; Neutrophils # (A) 6.9 k/uL (1.3-7.7); Neutrophils % (A) 69 %; RBC 5.51 m/uL (4.30-5.90); RDW 14.2 % (11.5-15.5); WBC 9.9 k/uL (3.8-10.6); WBC (Perox) 9.83
--- NOTE | 2017-06-12 19:23 | XR ---
EXAMINATION TYPE: XR chest 2V DATE OF EXAM: 06/12/2017 COMPARISON: 04/24/2017 HISTORY: Flank pain TECHNIQUE: Frontal and lateral views of the chest are obtained. FINDINGS: Heart and mediastinum are normal. Lungs are clear. Diaphragm is normal. There are sternal wires. Bony thorax is intact. There are chest leads. IMPRESSION: Normal chest. No change.
[2017-06-12 19:29] LABS: ALT 28 U/L (21-72); AST 22 U/L (17-59); Alkaline Phosphatase 112 U/L (38-126); Anion Gap 10 mmol/L; Blood Urea Nitrogen 18 mg/dL (9-20); Carbon Dioxide 28 mmol/L (22-30); Chloride 97 mmol/L (98-107); Glucose 266 mg/dL (74-99); Magnesium 1.3 mg/dL (1.6-2.3); Non-African American GFR(MDRD) >60 (>60 ml/min/1.73 sqM); Potassium 5.1 mmol/L (3.5-5.1); Sodium 135 mmol/L (137-145); Total Bilirubin 0.6 mg/dL (0.2-1.3); Total Protein 6.9 g/dL (6.3-8.2)
[2017-06-12 19:35] LABS: Creatine Kinase 35 U/L (55-170)
[2017-06-12 19:42] LABS: INR 1.1 (<1.2); Partial Thromboplastin Time 24.2 sec (22.0-30.0); Prothrombin Time 10.8 sec (9.0-12.0)
[2017-06-12 19:48] LABS: Creatine Kinase MB 0.5 ng/mL (0.0-2.4); Troponin I <0.012 ng/mL (0.000-0.034)
[2017-06-12] MEDS ORDERED: NITROGLYCERIN SL TABS 0.4 MG TAB SUBLINGUAL PRN (20:30)
[2017-06-12] MEDS ORDERED: MORPHINE SULFATE 10 MG/ML SYRINGE IVP STA (20:40)
[2017-06-12] MEDS ORDERED: RX INFO: IV CONTRAST WAS GIVEN 1 EACH MISC MISCELLANE PRN (20:40)
--- NOTE | 2017-06-12 21:25 | CT ---
EXAMINATION TYPE: CT abdomen pelvis w con DATE OF EXAM: 06/12/2017 COMPARISON: NONE HISTORY: RIGHT SIDE ABDOMINAL PAIN. CT DLP: 1011.22 mGycm Automated exposure control for dose reduction was used. TECHNIQUE: Helical acquisition of images was performed from the lung bases through the pelvis. CONTRAST: Performed without Oral Contrast and with IV Contrast, patient injected with 100 mL of Omnipaque 350. FINDINGS: Lung bases are clear. There is no pleural effusion. Heart size is normal. There are clips from cholecystectomy. Liver appears normal. Spleen pancreas appear normal. Bile ducts are not dilated. There is no adrenal mass. Kidneys show satisfactory contrast opacification. There is no hydronephrosi s. There is no retroperitoneal adenopathy. Abdominal aorta is atheromatous. There is no ascites. Blad edie distends smoothly. There is no sign of a pelvic mass. Appendix is not seen. There is no sign of a ppendicitis. I see no intestinal wall thickening. There are no dilated loops. There is lower lumbar s pine posterior surgery. I see no focal bone destruction. IMPRESSION: ATHEROSCLEROTIC VASCULAR DISEASE. NO SIGN OF ACUTE ABDOMEN AND PELVIS.
--- NOTE | 2017-06-12 21:27 | CT ---
EXAMINATION TYPE: CT angio chest DATE OF EXAM: 06/12/2017 9:18 PM COMPARISON: NONE HISTORY: CHEST PAIN. CT DLP: 480.83 mGycm Automated exposure control for dose reduction was used. CONTRAST: CTA scan of the thorax is performed with IV Contrast, patient injected with 100 mL of Omnipaque 350, pulmonary embolism protocol. There are 3-D post processed images.. FINDINGS: The lungs are clear of infiltrate. There is no pleural effusion. There is no evidence of a pulmonary mass. Thoracic aorta appears normal. There is no sign of aneurysm or dissection. There is no pericardial ef fusion. I see no filling defects in the pulmonary arteries. There is no mediastinal adenopathy. The bony thor ax is intact. IMPRESSION: NEGATIVE EXAM. NO EVIDENCE OF PULMONARY EMBOLISM.
[2017-06-12 22:52] LABS: Glucose,Whole Blood 197 mg/dL (75-99)
[2017-06-12] MEDS: MAGNESIUM SULFATE-D5W PMX 1 GM in DEXTROSE/WATER 1 100ML.BAG IVPB SCH ×2 (23:00→23:46)
[2017-06-12] MEDS: HYDROcodone/APAP 7.5-325MG 1 EACH TAB PO PRN (23:00)
[2017-06-12] MEDS: METOPROLOL TARTRATE 12.5 MG TAB PO SCH (23:37)
[2017-06-12] MEDS: GLIMEPIRIDE 4 MG TAB PO SCH (23:37)
[2017-06-12] MEDS: MONTELUKAST 10 MG TAB PO SCH ×2 (23:37→23:42)
[2017-06-12] MEDS: ISOSORBIDE DINITRATE 10 MG TAB PO SCH (23:37)
[2017-06-12] MEDS: LISINOPRIL 2.5 MG TAB PO SCH (23:37)
[2017-06-12] MEDS: GABAPENTIN 100 MG CAP PO SCH (23:37)
[2017-06-13] MEDS: MAGNESIUM SULFATE-D5W PMX 1 GM in DEXTROSE/WATER 1 100ML.BAG IVPB SCH ×2 (00:12→01:19)
[2017-06-13 01:41] LABS: Creatine Kinase 35 U/L (55-170)
[2017-06-13 01:54] LABS: Creatine Kinase MB 0.5 ng/mL (0.0-2.4); Troponin I <0.012 ng/mL (0.000-0.034)
[2017-06-13] MEDS: MORPHINE SULFATE 10 MG/ML SYRINGE IV PRN ×2 (03:29→09:48)
[2017-06-13] MEDS: HYDROcodone/APAP 7.5-325MG 1 EACH TAB PO PRN ×2 (05:28→11:02)
[2017-06-13 07:44] LABS: Glucose,Whole Blood 207 mg/dL (75-99)
[2017-06-13] MEDS ORDERED: SYMBICORT 160-4.5 MCG INHALER INHALATION SCH (08:00)
[2017-06-13 08:10] LABS: Magnesium 1.6 mg/dL (1.6-2.3)
[2017-06-13 08:18] LABS: Creatine Kinase 30 U/L (55-170)
[2017-06-13 08:31] LABS: Creatine Kinase MB 0.6 ng/mL (0.0-2.4); Troponin I <0.012 ng/mL (0.000-0.034)
[2017-06-13] MEDS: INSULIN LISPRO (humaLOG) 300 UNIT/3 ML VIAL SQ SCH ×2 (08:54→13:03)
[2017-06-13] MEDS ORDERED: ATORVASTATIN 80 MG TAB PO SCH (09:00)
[2017-06-13] MEDS ORDERED: NON-FORMULARY DRUG (Empagliflozin [Jardiance] 25 MG) PO SCH (09:00)
[2017-06-13] MEDS ORDERED: ASPIRIN 325 MG TAB PO SCH (09:00)
[2017-06-13 09:24] VITALS: BMI 24.5
[2017-06-13] MEDS ORDERED: ISOSORBIDE MONONITRATE ER 60 MG TAB.ER.24H PO SCH (09:45)
[2017-06-13] MEDS ORDERED: METOPROLOL TARTRATE 25 MG TAB PO SCH (10:00)
[2017-06-13 10:19] LABS: Glucose,Whole Blood 197 mg/dL (75-99)
--- NOTE | 2017-06-13 10:53 | P.CRDCN ---
History of Present Illness Consult date: 06/13/17 History of present illness: This is a 51-year-old male past medical history significant for CAD with 4-vessel CABG in early , hypertension, diabetes mellitus, chronic tobacco abuse, occasional marijuana use and chronic back pain. He presented to the hospital with complaints of left sided chest pain as well as right sided flank pain that radiates around to the right chest wall. He states the chest pain started about 2 days ago and is a heavy pressure like feeling. It is associated with dizziness, shortness of breath and nausea. His pain is worse with deep inspiration and worse with movement. He recently underwent a Lexiscan at the office which showed no signs of reversible ischemia with severely decreased LV function with EF 30%. Most recent echo performed 04/2017 reveals LV function with EF 40-45%. EKG reveals nonspecific T-wave abnormality in inferior leads consistent with old infarction with no acute changes compared to old EKG. Chest xray negative for acute cardiopulmonary process. CTA negative for PE. Cardiac enzymes negative x3, potassium 5.1, magnesium was 1.3 on admission 1.6 this morning after replacement, BUN 18, Cr 0.87, Hgb 16.0, platelets 218. Blood pressure 135/73 with heart rate 79. He states he tries to take his medication regularly, but is not always compliant. Current cardiac medications include aspirin 325 mg daily, lopressor 12.5 mg BID , lisinopril 30 mg daily, isosorbide dinitrate 30 mg daily and atorvastatin 80 mg daily. Review of Systems CONSTITUTIONAL: Denies fever. Denies chills. EYES: Denies blurred vision. Denies vision changes. Denies eye pain. EARS, NOSE, MOUTH & THROAT: Denies headache. Denies sore throat. Denies ear pain. CARDIOVASCULAR: Complains of constant chest pain, worse with deep inspiration and movement with shortness of breath. Denies orthopnea. Denies PND. Denies palpitations. RESPIRATORY: Denies cough. GASTROINTESTINAL: Complains of right flank/upper abdominal pain. Denies diarrhea. Denies constipation. Denies nausea. Denies vomitng. MUSCULOSKELETAL: Denies myalgias. INTEGUMENTARY: Denies pruitis. Denies rash. NEUROLOGIC: Denies numbness. Denies tingling. Denies weakness. PSYCHIATRIC: Denies anxiety. Denies depression. ENDOCRINE: Denies fatigue. Denies weight change. Denies polydipsia. Denies polyurina. GENITOURINARY: Denies burning, hematuria or urgency with micturation. HEMATOLOGIC: Denies history of anemia. Denies bleeding. Past Medical History Past Medical History: Coronary Artery Disease (CAD), Chest Pain / Angina, Diabetes Mellitus, Hypertension Additional Past Medical History / Comment(s): CONSTIPATED- "LAST BM 5-6 DAYS AGO ",ONLY HAS 2 TEETH .PSORIASES Last Myocardial Infarction Date:: 1999 History of Any Multi-Drug Resistant Organisms: None Reported Past Surgical History: Appendectomy, Cholecystectomy, Coronary Bypass/CABG Additional Past Surgical History / Comment(s): Lumbar disc surgery with cage, left shoulder scope Past Anesthesia/Blood Transfusion Reactions: No Reported Reaction Past Psychological History: Depression Smoking Status: Current every day smoker - Past Family History Father History Unknown: Yes (Alive has dementia and lumbar disc disease) Family Medical History: Dementia Mother History Unknown: Yes (Alive has cancer possibly throat unknown pathology) Family Medical History: Cancer Brother(s) History Unknown: Yes (Brother from brain mass at age 38) Sister(s) History Unknown: Yes (Depression) Daughter(s) History Unknown: Yes (Healthy 1 daughter) Son(s) History Unknown: Yes (Healthy 5 sons) Medications and Allergies Home Medications Medication Instructions Recorded Confirmed Type Atorvastatin [Lipitor] 80 mg PO DAILY #30 tab 04/27/17 06/12/17 Rx Gabapentin [Neurontin] 100 mg PO TID #90 cap 04/27/17 06/12/17 Rx Glimepiride [Amaryl] 4 mg PO AC-BID #60 tab 04/27/17 06/12/17 Rx Lisinopril [Zestril] 2.5 mg PO DAILY #30 tab 04/27/17 06/12/17 Rx Nitroglycerin Sl Tabs [Nitrostat] 0.4 mg SUBLINGUAL Q5M PRN #25 tab 04/27/17 Rx Albuterol Inhaler [Ventolin Hfa 1 - 2 puff INHALATION RT-QID PRN 06/12/17 History Inhaler] Aspirin EC [Ecotrin] 325 mg PO DAILY 06/12/17 06/12/17 History Budesonide-Formot 160-4.5 Mcg 2 puff INHALATION RT-BID 06/12/17 06/12/17 History [Symbicort 160-4.5 Mcg Inhaler] Empagliflozin [Jardiance] 25 mg PO DAILY 06/12/17 06/12/17 History HYDROcodone/APAP 7.5-325MG [[place] 7.5 mg PO TID PRN 06/12/17 06/12/17 History 7.5-325] Isosorbide Dinitrate 30 mg PO DAILY 06/12/17 06/12/17 History Metoprolol Tartrate [Lopressor] 12.5 mg PO BID 06/12/17 06/12/17 History Naproxen Sodium [Aleve] 220 mg PO BID PRN 06/12/17 06/12/17 History Orphenadrine [Norflex] 100 mg PO BID PRN 06/12/17 06/12/17 History Sennosides-Docusate Sodium 1 tab PO DAILY 06/12/17 06/12/17 History [Senokot-S] metFORMIN HCL 1,000 mg PO BID 06/12/17 06/12/17 History Allergies Allergy/AdvReac Type Severity Reaction Status Date / Time No Known Allergies Allergy Verified 06/12/17 21:36 Physical Exam Vitals: Vital Signs Temp Pulse Pulse Resp BP BP Pulse Ox 06/13/17 08:00 18 06/13/17 07:38 97.4 F L 79 18 135/73 97 06/13/17 03:44 18 06/13/17 03:40 97.8 F 69 18 132/67 97 06/12/17 23:53 87 16 142/80 97 06/12/17 21:46 18 06/12/17 21:30 97.6 F 87 18 173/95 100 06/12/17 20:27 86 18 167/77 97 06/12/17 18:17 97.2 F L 103 H 18 126/94 100 Intake and Output 06/12/17 06/13/17 06/13/17 22:59 06:59 14:59 Intake Total 850 Balance 850 Intake: IV 600 Sodium Chloride 0.9% 1, 600 000 ml @ 100 mls/hr IV . Q10H STA Rx#:[id number] Oral 250 Other: Voiding Method Toilet Toilet Toilet # Voids 2 Weight 68.946 kg GENERAL: This is a 51-year-old male in no apparent distress at the time of my examination. HEENT: Head is atraumatic, normocephalic. Pupils are equal, round. Sclerae anicteric. Conjunctivae are clear. Mucous membranes of the mouth are moist. Neck is supple. There is no jugular venous distention. No carotid bruit is heard. LUNGS: Clear to auscultation no wheezes, rales or rhonchi. No chest wall tenderness is noted on palpation or with deep breathing. HEART: Regular rate and rhythm without murmurs, rubs or gallops. S1 and S2 heard. ABDOMEN: Soft, nontender. Bowel sounds are heard. No organomegaly noted. EXTREMITIES: 2+ peripheral pulses with no evidence of peripheral edema and no calf tenderness noted. NEUROLOGIC: Patient is awake, alert and oriented x3. Results 06/12/17 19:01 06/12/17 19:01 Cardiac Enzymes 06/12/17 06/12/17 06/13/17 Range/Units 19:01 19:01 00:53 AST 22 (17-59) U/L CK-MB (CK-2) 0.5 0.5 (0.0-2.4) ng/mL Troponin I <0.012 <0.012 (0.000-0.034) ng/mL Coagulation 06/12/17 Range/Units 19:01 PT 10.8 (9.0-12.0) sec APTT 24.2 (22.0-30.0) sec Lipids 06/13/17 Range/Units 07:20 Triglycerides 119 (<150) mg/dL Cholesterol 149 (<200) mg/dL HDL Cholesterol 34 L (40-60) mg/dL CBC 06/12/17 Range/Units 19:01 WBC 9.9 (3.8-10.6) k/uL RBC 5.51 (4.30-5.90) m/uL Hgb 16.0 (13.0-17.5) gm/dL Hct 48.6 (39.0-53.0) % Plt Count 218 (150-450) k/uL Comprehensive Metabolic Panel 06/12/17 Range/Units 19:01 Sodium 135 L (137-145) mmol/L Potassium 5.1 (3.5-5.1) mmol/L Chloride 97 L (98-107) mmol/L Carbon Dioxide 28 (22-30) mmol/L BUN 18 (9-20) mg/dL Creatinine 0.87 (0.66-1.25) mg/dL Glucose 266 H (74-99) mg/dL Calcium 10.0 (8.4-10.2) mg/dL AST 22 (17-59) U/L ALT 28 (21-72) U/L Alkaline Phosphatase 112 (38-126) U/L Total Protein 6.9 (6.3-8.2) g/dL Albumin 4.2 (3.5-5.0) g/dL Current Medications Generic Name Dose Route Start Last Admin Trade Name Freq PRN Reason Stop Dose Admin Hydrocodone Bitart/Acetaminophen 1 each 06/12/17 22:40 06/13/17 05:28 Alden 7.5-325 PO 1 each TID PRN Administration Pain Aspirin 325 mg 06/13/17 09:00 Aspirin PO DAILY [facility] Atorvastatin Calcium 80 mg 06/13/17 09:00 Lipitor PO DAILY [facility] Budesonide/Formoterol Fumarate 2 puff 06/13/17 08:00 06/13/17 07:53 Symbicort 160-4.5 Mcg Inhaler INHALATION 2 puff RT-BID [facility] Administration Gabapentin 100 mg 06/12/17 22:45 06/12/17 23:37 Neurontin PO 100 mg TID ANA Administration Glimepiride 4 mg 06/12/17 22:45 06/12/17 23:37 Amaryl PO 4 mg AC-BID [facility] Administration Insulin Human Lispro 0 unit 06/13/17 07:30 Humalog SQ ACHS [facility] Protocol Isosorbide Dinitrate 30 mg 06/12/17 22:45 06/12/17 23:37 Isordil PO 30 mg DAILY ANA Administration Lisinopril 2.5 mg 06/12/17 23:00 06/12/17 23:37 Zestril PO 2.5 mg DAILY [facility] Administration Metoprolol Tartrate 12.5 mg 06/12/17 22:45 06/12/17 23:37 Lopressor PO 12.5 mg BID ANA Administration Miscellaneous Information 1 each 06/12/17 20:40 Rx Info: Iv Contrast Was Given MISCELLANE 06/14/17 20:41 DAILY PRN Per Protocol Morphine Sulfate 4 mg 06/12/17 20:30 06/13/17 03:29 Morphine Sulfate (Inj) IV 4 mg Q5M PRN Administration Chest Pain Nitroglycerin 0.4 mg 06/12/17 20:30 Nitrostat SUBLINGUAL Q5M PRN Chest Pain Non-Formulary Medication 25 mg 06/13/17 09:00 Empagliflozin [Jardiance] PO DAILY ANA Intake and Output 06/12/17 06/13/17 06/13/17 22:59 06:59 14:59 Intake Total 850 Balance 850 Intake: IV 600 Sodium Chloride 0.9% 1, 600 000 ml @ 100 mls/hr IV . Q10H STA Rx#:[id number] Oral 250 Other: Voiding Method Toilet Toilet Toilet # Voids 2 Weight 68.946 kg 06/12/17 19:01 06/12/17 19:01 Assessment and Plan Assessment: ASSESSMENT 1. Chest pain, atypical 2. History CAD with 4-vessel CABG 3. Dyslipidemia 4. Ischemic cardiomyopathy with systolic dysfunction 5. Hypertension 6. Diabetes mellitus 7. Chronic daily tobacco abuse PLAN We will repeat an echocardiogram to assess varying LV function; Increase isosorbide to 60 mg daily and metoprolol to 25 mg BID; Increase activity with ambulation in the hallway and evaluate chest pain. Dr. Walker has been notified of this admission and he would like to see him in the office next week for further evaluation. Appointment has been made for Jun 18 at 1330. Nurse Practitioner note has been reviewed, I agree with a documented findings and plan of care. Patient was seen and examined.
[2017-06-13] MEDS: LISINOPRIL 2.5 MG TAB PO SCH (10:57)
[2017-06-13] MEDS: GABAPENTIN 100 MG CAP PO SCH (10:57)
[2017-06-13] MEDS: GLIMEPIRIDE 4 MG TAB PO SCH (10:57)
[2017-06-13] MEDS: ISOSORBIDE DINITRATE 10 MG TAB PO SCH (11:27)
[2017-06-13] MEDS: METOPROLOL TARTRATE 12.5 MG TAB PO SCH (11:27)
[2017-06-13 11:30] VITALS: BP 138/64; PULSE 77; RESP 17; TEMP 97.9
--- NOTE | 2017-06-13 11:47 | ECHOF ---
Referral Reason:chest pain MEASUREMENTS -------- HEIGHT: 167.6 cm WEIGHT: 68.9 kg BP: 135/73 IVSd: 1.0 cm (0.6 - 1.1) LVIDd: 4.4 cm (3.9 - 5.3) LVPWd: 0.9 cm (0.6 - 1.1) IVSs: 1.1 cm LVIDs: 3.5 cm LVPWs: 1.0 cm LAESV Index (A-L): 18.12 ml/m Ao Diam: 3.1 cm (2.0 - 3.7) AV Cusp: 2.1 cm (1.5 - 2.6) LA Diam: 3.0 cm (2.7 - 3.8) MV EXCURSION: 16.312 mm (> 18.000) MV EF SLOPE: 100 mm/s (70 - 150) EPSS: 1.4 cm MV E Moose: 0.95 m/s MV DecT: 218 ms MV A Moose: 0.82 m/s MV E/A Ratio: 1.16 RAP: 5.00 mmHg RVSP: 8.59 mmHg FINDINGS -------- Sinus rhythm. This was a technically good study. The left ventricular size is normal. Left ventricular wall thickness is normal. Overall left vent ricular systolic function is mildly impaired with, an EF between 45 - 50 %. Inferiorlateral Hypokin esis The right ventricle is normal in size and function. Normal LA size by volume 22+/-6 ml/m2. The right atrium is normal in size. The aortic valve is trileaflet, and appears structurally normal. No aortic stenosis or regurgitation. The mitral valve leaflets are mildly thickened. There is trace mitral regurgitation. Trace tricuspid regurgitation present. The right ventricular systolic pressure, as measured by Dopp ler, is 8.59mmHg. Pulmonic valve appears structurally normal. The aortic root size is normal. The pericardium is normal. CONCLUSIONS -------- 1. Sinus rhythm. 2. This was a technically good study. 3. The left ventricular size is normal. 4. Left ventricular wall thickness is normal. 5. Overall left ventricular systolic function is mildly impaired with, an EF between 45 - 50 %. 6. Inferiorlateral Hypokinesis 7. The right ventricle is normal in size and function. 8. Normal LA size by volume 22+/-6 ml/m2. 9. The right atrium is normal in size. 10. The aortic valve is trileaflet, and appears structurally normal. No aortic stenosis or regurgitat ion. 11. The mitral valve leaflets are mildly thickened. 12. There is trace mitral regurgitation. 13. Trace tricuspid regurgitation present. 14. The right ventricular systolic pressure, as measured by Doppler, is 8.59mmHg. 15. Pulmonic valve appears structurally normal. 16. The aortic root size is normal. 17. The pericardium is normal. NEWSPAPER COLUMNIST: Mehreen Hugo RDCS
[2017-06-13 12:06] LABS: Glucose,Whole Blood 219 mg/dL (75-99)
--- NOTE | 2017-06-13 18:23 | P.HPIM ---
History of Present Illness H&P Date: 06/13/17 Chief Complaint: Chest Pain This is 51 years old male who presented to the hospital with chest pain. Patient was evaluated in the emergency department yesterday at [facility] where he was discharged and ultrasound at that time of the abdomen showed normal finding. Patient was admitted again to the general since department where all his troponin and EKG showed normal finding and was admitted for observation cardiology evaluated the patient recommended stress testing at that time patient had stress test 2 weeks ago that was canceled and patient was admitted for observation. Patient reported fluctuation in his pain between the right flank-like chest left chest and mediastinum on physical examination all the finding with abnormal CT was done in the emergency that showed normal lung and normal abdomen without any kidney stones patient pain was 3 at the time of the examination and denied shortness breath dizziness lightheadedness or blurry vision Review of Systems All 14 systems reviewed and negative except as above Past Medical History Past Medical History: Coronary Artery Disease (CAD), Chest Pain / Angina, Diabetes Mellitus, Hypertension Additional Past Medical History / Comment(s): CONSTIPATED- "LAST BM 5-6 DAYS AGO ",ONLY HAS 2 TEETH .PSORIASES Last Myocardial Infarction Date:: 1999 History of Any Multi-Drug Resistant Organisms: None Reported Past Surgical History: Appendectomy, Cholecystectomy, Coronary Bypass/CABG Additional Past Surgical History / Comment(s): Lumbar disc surgery with cage, left shoulder scope Past Anesthesia/Blood Transfusion Reactions: No Reported Reaction Past Psychological History: Depression Smoking Status: Current every day smoker - Past Family History Father History Unknown: Yes (Alive has dementia and lumbar disc disease) Family Medical History: Dementia Mother History Unknown: Yes (Alive has cancer possibly throat unknown pathology) Family Medical History: Cancer Brother(s) History Unknown: Yes (Brother from brain mass at age 38) Sister(s) History Unknown: Yes (Depression) Daughter(s) History Unknown: Yes (Healthy 1 daughter) Son(s) History Unknown: Yes (Healthy 5 sons) Medications and Allergies Home Medications Medication Instructions Recorded Confirmed Type Atorvastatin [Lipitor] 80 mg PO DAILY #30 tab 04/27/17 06/12/17 Rx Gabapentin [Neurontin] 100 mg PO TID #90 cap 04/27/17 06/12/17 Rx Glimepiride [Amaryl] 4 mg PO AC-BID #60 tab 04/27/17 06/12/17 Rx Lisinopril [Zestril] 2.5 mg PO DAILY #30 tab 04/27/17 06/12/17 Rx Nitroglycerin Sl Tabs [Nitrostat] 0.4 mg SUBLINGUAL Q5M PRN #25 tab 04/27/17 Rx Albuterol Inhaler [Ventolin Hfa 1 - 2 puff INHALATION RT-QID PRN 06/12/17 History Inhaler] Aspirin EC [Ecotrin] 325 mg PO DAILY 06/12/17 06/12/17 History Budesonide-Formot 160-4.5 Mcg 2 puff INHALATION RT-BID 06/12/17 06/12/17 History [Symbicort 160-4.5 Mcg Inhaler] Empagliflozin [Jardiance] 25 mg PO DAILY 06/12/17 06/12/17 History Naproxen Sodium [Aleve] 220 mg PO BID PRN 06/12/17 06/12/17 History Orphenadrine [Norflex] 100 mg PO BID PRN 06/12/17 06/12/17 History Sennosides-Docusate Sodium 1 tab PO DAILY 06/12/17 06/12/17 History [Senokot-S] metFORMIN HCL 1,000 mg PO BID 06/12/17 06/12/17 History HYDROcodone/APAP 10-325MG [[place] 1 tab PO Q6H PRN 06/13/17 06/13/17 History 10-325] Isosorbide Mononitrate ER [Imdur] 60 mg PO DAILY #30 tab.er.24h 06/13/17 Rx Metoprolol Tartrate [Lopressor] 25 mg PO BID #60 tab 06/13/17 Rx Omeprazole [PriLOSEC] 20 mg PO AC-BRKFST 06/13/17 06/13/17 History Allergies Allergy/AdvReac Type Severity Reaction Status Date / Time No Known Allergies Allergy Verified 06/12/17 21:36 Physical Exam Vitals: Vital Signs Temp Pulse Pulse Resp BP BP Pulse Ox 06/13/17 11:28 97.9 F 77 17 138/64 98 06/13/17 08:00 18 06/13/17 07:38 97.4 F L 79 18 135/73 97 06/13/17 03:44 18 06/13/17 03:40 97.8 F 69 18 132/67 97 06/12/17 23:53 87 16 142/80 97 06/12/17 21:46 18 06/12/17 21:30 97.6 F 87 18 173/95 100 06/12/17 20:27 86 18 167/77 97 Intake and Output 06/13/17 06/13/17 06/13/17 06:59 14:59 22:59 Intake Total 850 Balance 850 Intake: IV 600 Sodium Chloride 0.9% 1, 600 000 ml @ 100 mls/hr IV . Q10H STA Rx#:[id number] Oral 250 Other: Voiding Method Toilet Toilet # Voids 2 Weight 68.946 kg Patient Weight 06/14/17 06:59 Weight 68.946 kg General in his stated age in no acute distress Lungs clear to auscultation bilaterally Heart normal S1-S2 Abdomen soft no tenderness Lower extremity no edema Skin no new rash Psych alert and oriented 3 Neuro cranial nerves II-12 is intact Results CBC & Chem 7: 06/12/17 19:01 06/12/17 19:01 Labs: Abnormal Lab Results - Last 24 Hours (Table) 06/12/17 06/12/17 06/12/17 Range/Units 19:01 19:01 22:49 Sodium 135 L (137-145) mmol/L Chloride 97 L (98-107) mmol/L Glucose 266 H (74-99) mg/dL POC Glucose (mg/dL) 197 H (75-99) mg/dL Magnesium 1.3 L (1.6-2.3) mg/dL Total Creatine Kinase 35 L (55-170) U/L HDL Cholesterol (40-60) mg/dL 06/13/17 06/13/17 06/13/17 Range/Units 00:53 07:20 07:20 Sodium (137-145) mmol/L Chloride (98-107) mmol/L Glucose (74-99) mg/dL POC Glucose (mg/dL) (75-99) mg/dL Magnesium (1.6-2.3) mg/dL Total Creatine Kinase 35 L 30 L (55-170) U/L HDL Cholesterol 34 L (40-60) mg/dL 06/13/17 06/13/17 06/13/17 Range/Units 07:41 10:16 12:03 Sodium (137-145) mmol/L Chloride (98-107) mmol/L Glucose (74-99) mg/dL POC Glucose (mg/dL) 207 H 197 H 219 H (75-99) mg/dL Magnesium (1.6-2.3) mg/dL Total Creatine Kinase (55-170) U/L HDL Cholesterol (40-60) mg/dL Thrombosis Risk Factor Assmnt - DVT/VTE Prophylaxis DVT/VTE Prophylaxis: Mechanical Prophylaxis ordered - Choose All That Apply Any of the Below Risk Factors Present?: Yes Each Factor Represents 1 point: Age 41-60 years Other Risk Factors: No Other congenital or acquired thrombophilia - If yes, enter type in comment: No Thrombosis Risk Factor Assessment Total Risk Factor Score: 1 Thrombosis Risk Factor Assessment Level: Low Risk Assessment and Plan Assessment: 1. Atypical chest pain. Stress test was done 2 weeks ago that showed normal finding patient to follow-up with cardiology outpatient. 2. Right flank pain. CT scan of the chest and abdomen showed normal finding and negative for stones patient denied any dysuria. Patient is to follow-up with his primary care physician in 2-3 days patient requested 10 tablets of [place] to be prescribed and we will provide patients with 10 tablets until he sees his primary care physician. 3. Diabetes. Uncontrolled we will have patient follow-up with his primary care physician and patient counseled regarding adherence to his medication. 4. Hypertension. Fair control and continue home regimen. 5. Hyperlipidemia. Continue statin. 6. Tobacco dependency. Patient counseled regarding smoking cessation. Discharge patient home to follow up with primary care physician in 3 days
== END 2017-06-13 13:00 | disposition home or self-care (01) ==
LOC: EC 18:15 → 3OBS 20:30
PROVIDERS: ADMIT Family Medicine; ATTEND Family Medicine
DX: R07.89 Other chest pain (principal); R10.9 Unspecified abdominal pain; I10 Essential (primary) hypertension; E78.5 Hyperlipidemia, unspecified; E11.9 Type 2 diabetes mellitus without complications; I25.10 Atherosclerotic heart disease of native coronary artery without angina pectoris; I25.5 Ischemic cardiomyopathy; M54.9 Dorsalgia, unspecified; G89.29 Other chronic pain; F12.90 Cannabis use, unspecified, uncomplicated; K59.00 Constipation, unspecified; F17.200 Nicotine dependence, unspecified, uncomplicated; Z95.1 Presence of aortocoronary bypass graft; Z79.84 Long term (current) use of oral hypoglycemic drugs; Z79.82 Long term (current) use of aspirin; Z79.51 Long term (current) use of inhaled steroids; Z79.899 Other long term (current) drug therapy
CPT/HCPCS: 99291 ×2; 96375 ×2; 96361 ×3; 96376; 96365; 36415; 94640; 93005; 93306; 83880; 80061; 80053; 82550 ×2; 82553 ×2; 83690; 83735 ×2; 84484 ×2; 85025; 85610; 85730; 83036; 71020; 71275; 74177; G0378 ×2; Q9967; J2270 ×2; J3475 ×2

== ENCOUNTER → 2017-07-03 | Day surgery (SDC) | payer OTHER ==
[2017-07-01 15:44] VITALS: BMI 22.2
[~2017-07-03] MED LIST: LACTATED RINGERS 1,000 ML IV SCH; LIDOCAINE 1% INJ 10MG/ML (20 ML MDV) ONE; PROPOFOL 10 MG/ML 20 ML VIAL IV ONE
[2017-07-03 10:49] VITALS: RESP 16; TEMP 98.2
[2017-07-03 11:08] LABS: Glucose,Whole Blood 179 mg/dL (75-99)
--- NOTE | 2017-07-03 11:25 | P.PCN ---
Date of Procedure: 07/03/17 Procedure(s) Performed: Brief history: Patient is a pleasant 51-year-old white male, scheduled for an elective upper endoscopy as well as colonoscopy as a part of evaluation of abdominal pain, severe constipation for the last several months duration. Lately his symptoms have been progressively getting worse. Procedure performed: Esophagogastroduodenoscopy with biopsy Colonoscopy with snare polypectomy Preoperative diagnosis: Abdominal pain, abdominal bloating Chronic severe constipation Anesthesia: MAC Procedure: After informed consent was obtained from the patient was brought into the endoscopy unit and IV sedation was administered by anesthesia under continuous monitoring. Initially upper endoscopy was done. The Olympus GF 160 video endoscope was inserted inserted into the mouth and esophagus intubated without any difficulty and was gradually advanced into the stomach and duodenum and carefully examined. The bulb and second part of the duodenum appeared normal. The scope was then withdrawn into the stomach adequately insufflated with air and upon careful examination the antrum and body had mild diffuse gastritis and biopsies were done from this area. The, cardia and fundus appeared normal. The scope was then withdrawn into the esophagus. The GE junction was located at 40 cm to the incisors. It appeared regular with no erythema erosions or ulcerations. Rest of the esophagus appeared normal. Patient tolerated the procedure well. At this time the patient continued to remain sedation. Initial digital rectal examination was normal. Olympus CF 160 video colonoscope was then inserted into the rectum and gradually advanced to the cecum without any difficulty. Careful examination was performed as the scope was gradually being withdrawn. The prep was excellent. The cecum, ascending colon, transverse colon, descending colon, sigmoid colon appeared normal. In the proximal rectum at 15 cm from the anal verge there was a 2 cm pedunculated polyp removed by snare polypectomy. Retroflexion was performed in the rectum and no lesions were noted. Patient tolerated the procedure well. Impression: 1. Upper endoscopy revealed mild diffuse gastritis but no evidence of esophagitis or peptic ulcer disease 2. Colonoscopy revealed 2 cm pedunculated proximal rectal polyp status post polypectomy. Recommendations: Findings of this examination were discussed with the patient as well as his family. He was advised to follow with the biopsy results. If the biopsy shows a tubular adenoma he can have a repeat colonoscopy in 3 years. The patient will be seen back in the office in 2 weeks.
[2017-07-03 11:56] VITALS: BP 115/76; PULSE 82
== END ==
LOC: ORWHC2ENDO 09:56
PROVIDERS: ATTEND Internal Medicine Gastroenterology
DX: K29.50 Unspecified chronic gastritis without bleeding (principal); D12.8 Benign neoplasm of rectum; K59.00 Constipation, unspecified; I25.10 Atherosclerotic heart disease of native coronary artery without angina pectoris; I10 Essential (primary) hypertension; E78.5 Hyperlipidemia, unspecified; J44.9 Chronic obstructive pulmonary disease, unspecified; K21.9 Gastro-esophageal reflux disease without esophagitis; E11.9 Type 2 diabetes mellitus without complications; Z79.82 Long term (current) use of aspirin; Z79.899 Other long term (current) drug therapy; Z79.891 Long term (current) use of opiate analgesic; Z79.84 Long term (current) use of oral hypoglycemic drugs
CPT/HCPCS: 88305; 88342; 45385; 43239; J2001; J2704

== ENCOUNTER → 2018-06-25 | Outpatient (CLI) | payer OTHER ==
[2018-06-25 09:46] LABS: Basophils # (A) 0.1 k/uL (0-0.2); Basophils % (A) 1 %; Eosinophils # (A) 0.6 k/uL (0-0.7); Eosinophils % (A) 5 %; HCT 44.9 % (39.0-53.0); HGB 14.9 gm/dL (13.0-17.5); Lymphocytes # (A) 2.3 k/uL (1.0-4.8); Lymphocytes % (A) 22 %; MCH 30.2 pg (25.0-35.0); MCHC 33.2 g/dL (31.0-37.0); Mean Platelet Volume 8.6; Monocytes # (A) 0.6 k/uL (0-1.0); Monocytes % (A) 5 %; Neutrophils # (A) 6.7 k/uL (1.3-7.7); Neutrophils % (A) 65 %; Platelet Count 174 k/uL (150-450); RBC 4.94 m/uL (4.30-5.90); RDW 13.3 % (11.5-15.5); WBC 10.4 k/uL (3.8-10.6)
[2018-06-25 09:57] LABS: Uric Acid 6.2 mg/dL (3.5-8.5)
--- NOTE | 2018-06-25 09:58 | MR ---
EXAMINATION TYPE: MR shoulder LT wo con DATE OF EXAM: 06/25/2018 8:32 AM COMPARISON: NONE HISTORY: Left shoulder pain, impingement syndrome TECHNIQUE: Multiplanar multispin echo imaging of the left shoulder was performed. FINDINGS: Rotator cuff : There is thickening and heterogeneity of the supraspinatus tendon compatible chronic t endinopathy. No evidence for partial-thickness or full-thickness tear. Remaining rotator cuff tendons demonstrate a normal appearance. Bursa: No bursal effusion or thickening is seen. Musculature: There is no muscular tear, contusion, or atrophy. Acromioclavicular joint : There is moderate AC joint arthropathy resulting in mild impingement. The a cromion is flat without significant spurring. Osseous structures : There are no fractures or regions of abnormal bone marrow signal intensity. Long biceps tendon : The biceps tendon is normally situated within the bicipital groove. No complete or partial biceps tendon tear is present. Glenohumeral Joint fluid : There is no glenohumeral joint effusion. Cartilage and Bone : No focal hyaline cartilage defects are noted. No Hill-Sachs, reverse Hill-Sachs, or bony Bankart lesions are seen. Labrum : There are no SLAP or soft tissue Bankart lesions. No paralabral cysts are seen. OTHER FINDINGS : none IMPRESSION: 1. There is thickening and heterogeneity of the supraspinatus tendon compatible chronic tendinopathy. There is moderate AC joint arthropathy resulting in mild impingement.
[2018-06-25 10:14] LABS: T4, Free (Free Thyroxine) 1.16 ng/dL (0.78-2.19)
[2018-06-25 17:47] LABS: Vitamin D 25 Hydroxy 22.1 ng/mL (30.0-100.0)
[2018-06-25 19:43] LABS: Hemoglobin A1C 11.7 % (4.0-6.0)
== END ==
LOC: RADMRIMAIN 07:56
PROVIDERS: ATTEND Family Medicine
DX: M75.42 Impingement syndrome of left shoulder (principal); M19.012 Primary osteoarthritis, left shoulder; I25.84 Coronary atherosclerosis due to calcified coronary lesion; E11.43 Type 2 diabetes mellitus with diabetic autonomic (poly)neuropathy; I42.9 Cardiomyopathy, unspecified
CPT/HCPCS: 36415; 80061; 82306; 82550; 82607; 83036; 84439; 84443; 84550; 85025

== ENCOUNTER → 2018-12-29 | Outpatient (CLI) | payer OTHER ==
--- NOTE | 2018-12-29 12:58 | XR ---
EXAMINATION TYPE: XR cervical spine comp DATE OF EXAM: 12/29/2018 COMPARISON: None HISTORY: 53-year-old male with neck pain TECHNIQUE: 6 views FINDINGS: No predental space widening or prevertebral soft tissue swelling. Some degenerative changes at the C1 dens articulation. Mild endplate spondylosis mid lumbar spine with scattered mild facet and uncovert ebral joint spurring. Alignment is maintained. No significant bony neuroforaminal narrowing on either side. Median sternotomy wires partially visualized. Atherosclerotic calcifications at the right palmer tid bifurcation. IMPRESSION: Mild spondylotic change. No malalignment. No significant bony neuroforaminal narrowing on either side .
== END | disposition home or self-care (01) ==
LOC: RADXRMAIN 11:07
PROVIDERS: ATTEND Internal Medicine
DX: M47.812 Spondylosis without myelopathy or radiculopathy, cervical region (principal)
CPT/HCPCS: 72050

== ENCOUNTER → 2019-01-13 | Outpatient (CLI) | payer OTHER ==
--- NOTE | 2019-01-13 13:08 | XR ---
EXAMINATION TYPE: XR lumbar spine 2 or 3V DATE OF EXAM: 01/13/2019 COMPARISON: HISTORY: M54.5 TECHNIQUE: Lumbar spine is examined in 3 projections. FINDINGS: Postsurgical changes with pedicle screws are present L5-S1. Vertebral body alignment appear s normal. Disc space narrowing is present L5-S1. Vertebral body heights are preserved. IMPRESSION: 1. Postsurgical changes lumbar spine
== END | disposition home or self-care (01) ==
LOC: RADXRMAIN 12:47
PROVIDERS: ATTEND Internal Medicine
DX: M54.5 Low back pain (principal); Z98.890 Other specified postprocedural states
CPT/HCPCS: 72100

== ENCOUNTER → 2020-09-15 | Outpatient (CLI) | payer OTHER ==
--- NOTE | 2020-09-15 15:56 | XR ---
2 view abdomen HISTORY: Left upper quadrant and left leg pain 2 views of the abdomen, comparison prior lumbar spine 01/13/2019, KUB 06/21/2017 Surgical clips present right upper quadrant. Patient is post median sternotomy. Post procedural العراق[place] es status post posterior lumbar fusion L5-S1 noted. Lung bases are clear. No pneumoperitoneum or talisha l obstruction. Retained fecal debris present throughout the distribution of the colon. Vas deferens c alcifications, probable vascular calcifications present within the pelvis. IMPRESSION: Correlate for fecal stasis. Nonspecific bowel gas pattern.
== END | disposition home or self-care (01) ==
LOC: RADXRMAIN 14:45
PROVIDERS: ATTEND Nurse Practitioner Family
DX: R10.12 Left upper quadrant pain (principal)
CPT/HCPCS: 74019

== ENCOUNTER → 2020-11-24 | Outpatient (CLI) | payer OTHER ==
--- NOTE | 2020-11-24 12:19 | XR ---
EXAMINATION TYPE: XR hand complete RT DATE OF EXAM: 11/24/2020 COMPARISON: NONE HISTORY: Pain TECHNIQUE: Three views are submitted. FINDINGS: The osseous structures are intact. The joint spaces are preserved and there is no acute fracture or dislocation. Vascular calcifications noted. Tiny density adjacent to the DIP joint of the second digi t onto small to characterize IMPRESSION: 1. No definite acute fracture or dislocation if symptoms persist, follow-up study in 7 to 10 days wo uld be suggested. See above.
== END | disposition home or self-care (01) ==
LOC: RADXRMAIN 11:44
PROVIDERS: ATTEND Nurse Practitioner Family
DX: M79.641 Pain in right hand (principal)

== ENCOUNTER → 2020-11-30 | Outpatient (CLI) | payer OTHER ==
--- NOTE | 2020-11-30 15:42 | US ---
EXAMINATION TYPE: US venous doppler duplex UE RT DATE OF EXAM: 11/30/2020 COMPARISON: NONE CLINICAL HISTORY: Right upper extremity M79.621 Pain in arm. SIDE PERFORMED: Right Arm: Negative for DVT Left Arm: IMPRESSION: 1. Right upper extremity ultrasound negative for deep venous thrombosis
== END | disposition home or self-care (01) ==
LOC: RADUSWWP 11:02
PROVIDERS: ATTEND Family Medicine
DX: M79.621 Pain in right upper arm (principal)

== ENCOUNTER 2020-12-09 18:44 | Emergency (ER) | payer OTHER ==
[2020-12-09 18:48] VITALS: TEMP 97.5
[2020-12-09] MEDS ORDERED: MORPHINE SULFATE 4 MG/ML SYRINGE IV STA (19:14)
--- NOTE | 2020-12-09 19:31 | ED ---
Abdominal Pain HPI - General Chief Complaint: Abdominal Pain Stated Complaint: abd & back pain Time Seen by Provider: 12/09/20 19:01 Source: patient, RN notes reviewed Mode of arrival: ambulatory Limitations: no limitations - History of Present Illness Initial Comments: Patient is a 54-year-old male that presents to emergency department complaining of right-sided abdominal pain and back pain. He did note that he has a history of an appendectomy and cholecystectomy. He states the pains been on and off for approximately one week it comes and goes unrelieved with any home remedies. He denies any aggravating factors such as food, alcohol or exercise. He was in no apparent distress or pain while sitting up in bed during the exam interview. He did note that he is a diabetic and has COPD. He notes that his hemoglobin A1c was 60 at one point but has dropped recently 2 about 10. He denied any chest pain shortness of breath headache nausea vomiting diarrhea fever fatigue chills. - Related Data Home Medications Medication Instructions Recorded Confirmed Albuterol Inhaler (Mhu) [Ventolin 1 - 2 puff INHALATION RT-QID PRN 06/12/17 07/28/17 Hfa Inhaler (Mhu)] Budesonide-Formot 160-4.5 Mcg 2 puff INHALATION BID 06/12/17 07/28/17 [Symbicort 160-4.5 Mcg Inhaler] Empagliflozin [Jardiance] 25 mg PO DAILY 06/12/17 07/28/17 Orphenadrine [Norflex] 100 mg PO BID PRN 06/12/17 07/28/17 Sennosides-Docusate Sodium 1 tab PO DAILY 06/12/17 07/28/17 [Senokot-S] metFORMIN HCL 1,000 mg PO BID 06/12/17 07/28/17 Montelukast [Singulair] 10 mg PO HS 06/21/17 07/28/17 Isosorbide Mononitrate ER [Imdur] 60 mg PO QAM 07/01/17 07/28/17 lisinopriL [Zestril] 2.5 mg PO QAM 07/01/17 07/28/17 Aspirin [Adult Low Dose Aspirin EC] 81 mg PO DAILY 07/24/17 07/29/17 Previous Rx's Medication Instructions Recorded Atorvastatin [Lipitor] 80 mg PO DAILY #30 tab 04/27/17 Gabapentin [Neurontin] 100 mg PO TID #90 cap 04/27/17 Glimepiride [Amaryl] 4 mg PO AC-BID #60 tab 04/27/17 Nitroglycerin Sl Tabs [Nitrostat] 0.4 mg SUBLINGUAL Q5M PRN #25 tab 04/27/17 Metoprolol Tartrate [Lopressor] 25 mg PO BID #60 tab 06/13/17 Omeprazole [PriLOSEC] 20 mg PO AC-BID #60 cap 06/21/17 Clopidogrel [Plavix] 75 mg PO DAILY #75 tab 07/30/17 Nicotine 7Mg/24Hr Patch [Habitrol] 1 patch TRANSDERM ONCE PRN #30 07/30/17 patch Magnesium Citrate 148 ml PO ONCE 1 Days #296 ml 12/09/20 Allergies Allergy/AdvReac Type Severity Reaction Status Date / Time No Known Allergies Allergy Verified 12/09/20 18:48 Review of Systems ROS Statement: Those systems with pertinent positive or pertinent negative responses have been documented in the HPI. ROS Other: All systems not noted in ROS Statement are negative. Past Medical History Past Medical History: Coronary Artery Disease (CAD), Chest Pain / Angina, Diabetes Mellitus, Hypertension Additional Past Medical History / Comment(s): CONSTIPATED- ,ONLY HAS 2 TEETH .PSORIASES Last Myocardial Infarction Date:: 1999 History of Any Multi-Drug Resistant Organisms: None Reported Past Surgical History: Appendectomy, Cholecystectomy, Coronary Bypass/CABG Additional Past Surgical History / Comment(s): Lumbar disc surgery with cage, left shoulder scope Past Anesthesia/Blood Transfusion Reactions: No Reported Reaction Past Psychological History: Depression Smoking Status: Current every day smoker Past Alcohol Use History: None Reported Past Drug Use History: Marijuana - Past Family History Father History Unknown: Yes Family Medical History: Dementia Mother History Unknown: Yes Family Medical History: Cancer Brother(s) History Unknown: Yes Sister(s) History Unknown: Yes Daughter(s) History Unknown: Yes Son(s) History Unknown: Yes General Exam Limitations: no limitations General appearance: alert, in no apparent distress Head exam: Present: atraumatic, normocephalic, normal inspection Eye exam: Present: normal appearance, PERRL, EOMI. Absent: scleral icterus, conjunctival injection, periorbital swelling ENT exam: Present: normal exam, mucous membranes moist Neck exam: Present: normal inspection. Absent: tenderness, meningismus, lymphadenopathy Respiratory exam: Present: normal lung sounds bilaterally. Absent: respiratory distress, wheezes, rales, rhonchi, stridor Cardiovascular Exam: Present: regular rate, normal rhythm, normal heart sounds. Absent: systolic murmur, diastolic murmur, rubs, gallop, clicks GI/Abdominal exam: Present: soft, tenderness (Generalized right side.), normal bowel sounds. Absent: distended, guarding, rebound, rigid Extremities exam: Present: normal inspection, full ROM, normal capillary refill. Absent: tenderness, pedal edema, joint swelling, calf tenderness Back exam: Present: normal inspection Neurological exam: Present: alert, oriented X3, CN II-XII intact Psychiatric exam: Present: normal affect, normal mood Skin exam: Present: warm, dry, intact, normal color. Absent: rash Course Vital Signs 12/09/20 18:45 Temperature 97.5 F L Pulse Rate 107 H Respiratory 20 Rate Blood Pressure 111/79 O2 Sat by Pulse 99 Oximetry Medical Decision Making - Medical Decision Making 54-year-old male complaining of abdominal pain for the past week. Labs, KUB, 4 mg morphine ordered. Labs unremarkable, shows dehydration. Patient does report not drinking hardly any water most days. States that he is trying to better. Case discussed with Dr. Zambrano, patient discharge home. - Lab Data Result diagrams: 12/09/20 19:42 12/09/20 19:42 Lab Results 12/09/20 12/09/20 12/09/20 Range/Units 19:42 19:42 19:42 WBC 13.2 H (3.8-10.6) k/uL RBC 5.85 (4.30-5.90) m/uL Hgb 17.5 (13.0-17.5) gm/dL Hct 51.5 (39.0-53.0) % MCV 88.1 (80.0-100.0) fL MCH 30.0 (25.0-35.0) pg MCHC 34.0 (31.0-37.0) g/dL RDW 12.7 (11.5-15.5) % Plt Count 250 (150-450) k/uL MPV 8.4 Neutrophils % 72 % Lymphocytes % 16 % Monocytes % 6 % Eosinophils % 4 % Basophils % 1 % Neutrophils # 9.5 H (1.3-7.7) k/uL Lymphocytes # 2.1 (1.0-4.8) k/uL Monocytes # 0.8 (0-1.0) k/uL Eosinophils # 0.5 (0-0.7) k/uL Basophils # 0.1 (0-0.2) k/uL Sodium 130 L (137-145) mmol/L Potassium 5.7 H (3.5-5.1) mmol/L Chloride 92 L (98-107) mmol/L Carbon Dioxide 27 (22-30) mmol/L Anion Gap 11 mmol/L BUN 34 H (9-20) mg/dL Creatinine 1.21 (0.66-1.25) mg/dL Est GFR (CKD-EPI)AfAm 79 (>60 ml/min/1.73 sqM) Est GFR (CKD-EPI)NonAf 69 (>60 ml/min/1.73 sqM) Glucose 214 H (74-99) mg/dL Calcium 10.0 (8.4-10.2) mg/dL Total Bilirubin 0.6 (0.2-1.3) mg/dL AST 27 (17-59) U/L ALT 25 (4-49) U/L Alkaline Phosphatase 264 H (38-126) U/L Total Protein 7.5 (6.3-8.2) g/dL Albumin 4.6 (3.5-5.0) g/dL Amylase 51 (30-110) U/L Lipase 136 (23-300) U/L Urine Color Yellow Urine Appearance Clear (Clear) Urine pH 5.5 (5.0-8.0) Ur Specific [place] 1.011 (1.001-1.035) Urine Protein Negative (Negative) Urine Glucose (UA) Negative (Negative) Urine Ketones Negative (Negative) Urine Blood Trace H (Negative) Urine Nitrite Negative (Negative) Urine Bilirubin Negative (Negative) Urine Urobilinogen <2.0 (<2.0) mg/dL Ur Leukocyte Esterase Negative (Negative) Urine RBC 1 (0-5) /hpf Urine WBC 2 (0-5) /hpf Urine Bacteria Rare H (None) /hpf Urine Mucus Rare H (None) /hpf - Radiology Data Radiology results: report reviewed, image reviewed Abdominal x-ray: Nonacute abdomen. No adverse change. Disposition Clinical Impression: Constipation, Dehydration Disposition: HOME SELF-CARE Condition: Stable Instructions (If sedation given, give patient instructions): Constipation (ED), Dehydration (ED) Additional Instructions: Please return to the Emergency Department if symptoms worsen or any other concerns. Follow-up with primary care in 3-5 days. Take magnesium citrate as prescribed. Increase oral fluid intake, should try to drink at least 100 ounces of water per day. Continue take all at home medications as prescribed. Is patient prescribed a controlled substance at d/c from ED?: No Referrals: Anabela Rodriguez MD [Primary Care Provider] - 1-2 days Time of Disposition: 20:42
--- NOTE | 2020-12-09 19:42 | XR ---
EXAMINATION TYPE: XR KUB DATE OF EXAM: 12/09/2020 COMPARISON: 09/15/2020 HISTORY: Abdominal pain TECHNIQUE: 2 views upright FINDINGS: There is no sign of intestinal obstruction or pneumoperitoneum. Fecal pattern is normal. Th ere is no evidence of a mass. Lung bases are clear. There are no pathologic calcifications. There are clips from cholecystectomy. There is lower lumbar spine fusion surgery. There is vas deferens calcif ication. IMPRESSION: Nonacute abdomen. No adverse change.
[2020-12-09 20:09] LABS: Basophils # (A) 0.1 k/uL (0-0.2); Basophils % (A) 1 %; Eosinophils # (A) 0.5 k/uL (0-0.7); Eosinophils % (A) 4 %; HCT 51.5 % (39.0-53.0); HGB 17.5 gm/dL (13.0-17.5); Lymphocytes # (A) 2.1 k/uL (1.0-4.8); Lymphocytes % (A) 16 %; MCV 88.1 fL (80.0-100.0); Mean Platelet Volume 8.4; Monocytes # (A) 0.8 k/uL (0-1.0); Monocytes % (A) 6 %; Neutrophils # (A) 9.5 k/uL (1.3-7.7); Neutrophils % (A) 72 %; Platelet Count 250 k/uL (150-450); RBC 5.85 m/uL (4.30-5.90); RDW 12.7 % (11.5-15.5); WBC 13.2 k/uL (3.8-10.6)
[2020-12-09 20:18] LABS: Albumin 4.6 g/dL (3.5-5.0); Potassium 5.7 mmol/L (3.5-5.1); Total Bilirubin 0.6 mg/dL (0.2-1.3); Total Protein 7.5 g/dL (6.3-8.2)
[2020-12-09 20:21] LABS: Appearance,Urine Clear (Clear); Bacteria,Urine Rare /hpf; Bilirubin,Urine Negative (Negative); Blood,Urine Trace (Negative); Color,Urine Yellow; Glucose,Urine (UA) Negative (Negative); Ketones,Urine Negative (Negative); Leukocyte Esterase,Urine Negative (Negative); Mucus,Urine Rare /hpf; Nitrite,Urine Negative (Negative); PH, Urine 5.5 (5.0-8.0); Protein,Urine Negative (Negative); RBC,Urine 1 /hpf (0-5); Specific Gravity,Urine 1.011 (1.001-1.035); Urobilinogen,Urine <2.0 mg/dL (<2.0); WBC,Urine 2 /hpf (0-5)
[2020-12-09 21:07] VITALS: BP 118/78; PULSE 98; RESP 18
== END 2020-12-09 21:06 | disposition home or self-care (01) ==
LOC: EC 18:44
DX: K59.00 Constipation, unspecified (principal); E86.0 Dehydration; R10.84 Generalized abdominal pain; M54.9 Dorsalgia, unspecified; I25.10 Atherosclerotic heart disease of native coronary artery without angina pectoris; I10 Essential (primary) hypertension; E11.9 Type 2 diabetes mellitus without complications; J44.9 Chronic obstructive pulmonary disease, unspecified; I25.2 Old myocardial infarction; F32.9 Major depressive disorder, single episode, unspecified; F17.200 Nicotine dependence, unspecified, uncomplicated; F12.90 Cannabis use, unspecified, uncomplicated; Z79.82 Long term (current) use of aspirin; Z79.899 Other long term (current) drug therapy; Z79.51 Long term (current) use of inhaled steroids; Z79.84 Long term (current) use of oral hypoglycemic drugs; Z90.49 Acquired absence of other specified parts of digestive tract
CPT/HCPCS: 36415; 80053; 82150; 83690; 85025; 81001; 74018; 99284; 96374; J2270

== ENCOUNTER → 2020-12-12 | Outpatient (CLI) | payer OTHER ==
--- NOTE | 2020-12-12 11:52 | CT ---
EXAMINATION TYPE: CT abdomen pelvis wo con DATE OF EXAM: 12/12/2020 COMPARISON: 06/12/2017 HISTORY: Abd pain CT DLP: 533 mGycm Automated exposure control for dose reduction was used. TECHNIQUE: Helical acquisition of images was performed from the lung bases through the pelvis. FINDINGS: LUNG BASES: Linear changes involving the right lung base suggestive of atelectasis. Coronary artery c alcification noted. LIVER/GB: Postcholecystectomy changes.. PANCREAS: Mild fullness pancreatic head. SPLEEN: No significant abnormality is seen. ADRENALS: No significant abnormality is seen. KIDNEYS: No significant abnormality is seen. ADENOPATHY: None visualized. OSSEOUS STRUCTURES: Hypertrophic and degenerative changes of the spine. Postsurgical changes involvi ng the vertebral column BOWEL: Bowel gas pattern nonspecific. Extensive retained fecal debris throughout the right colon. Ap pendix not seen with certainty. No evidence of obstruction. OTHER: Bladder wall is thickening and there is calcifications of the vas deferens. No free fluid or f ree air. Atherosclerotic change aorta and its sidebranches but no evidence. Mild posterior hypertroph y. Suggestive of small bilateral hydroceles. IMPRESSION: 1. Mild fullness of the pancreatic head recommend post contrast CT scan or MRI. 2. Post cholecystectomy. 3. nonspecific gas pattern with extensive retained fecal debris involving the right colon. Lack of co ntrast limits assessment of the colon. Correlate with direct visualization as clinically warranted 4. Diffuse bladder wall thickening correlate for cystitis. Mild prostate
== END | disposition home or self-care (01) ==
LOC: RADCTMAIN 09:36
PROVIDERS: ATTEND Family Medicine
DX: N32.89 Other specified disorders of bladder (principal); Z90.49 Acquired absence of other specified parts of digestive tract
CPT/HCPCS: 74176; Q9967

== ENCOUNTER 2020-12-19 00:21 | Emergency (ER) | payer OTHER ==
[2020-12-19 00:25] VITALS: TEMP 97.6
--- NOTE | 2020-12-19 01:20 | XR ---
EXAM: XR Abdomen, 1 View CLINICAL HISTORY: ITS.REASON XR Reason: Constipation TECHNIQUE: Frontal supine view of the abdomen/pelvis. COMPARISON: December 09, 2020 FINDINGS: Intraperitoneal space: No pneumoperitoneum under the diaphragm. Gastrointestinal tract: There is a large amount of stool throughout the colon with the right colon dilated up to 8 cm consistent with constipation. This is greater than previous. Organs: Cholecystectomy clips in the right upper quadrant. Bones/joints: Previous lumbar spine laminectomy instrumentation L5-S1. Old healed right lower rib fractures IMPRESSION: There is a large amount of stool throughout the colon with the right colon dilated up to 8 cm consistent with constipation. This is greater than previous.
[2020-12-19] MEDS ORDERED: MORPHINE SULFATE 4 MG/ML SYRINGE IM STA (02:34)
[2020-12-19] MEDS ORDERED: PEG 3350-NA SULF,BICARB,CL/KCL 4,000 ML BOTTLE PO ONE (02:34)
--- NOTE | 2020-12-19 02:36 | ED ---
Abdominal Pain HPI - General Chief Complaint: Abdominal Pain Stated Complaint: Urogenital Time Seen by Provider: 12/19/20 00:29 Source: patient Mode of arrival: wheelchair Limitations: no limitations - History of Present Illness Initial Comments: 55 -year-old male patient presents to the emergency department today for evaluation of constipation. Patient states that he has had 2 bowel movements over the last 2 months. States he was seen and evaluated here one week ago was discharged home with magnesium citrate. States he did drink this. He has not had a bowel movement since. States he is having a lot of upper abdominal pain and distention. States he is having some back pain with this. He states he has no appetite. Denies vomiting. Denies fever or chills. Denies any hematuria, dysuria, urinary frequency, urinary urgency. Denies any history of abdominal surgery. States he does pass gas. Patient denies any recent rash, cough, shortness of breath, chest pain, numbness, tingling, dizziness, weakness, headache, visual changes, or any other complaints. - Related Data Home Medications Medication Instructions Recorded Confirmed Albuterol Inhaler (Mhu) [Ventolin 1 - 2 puff INHALATION RT-QID PRN 06/12/17 07/28/17 Hfa Inhaler (Mhu)] Budesonide-Formot 160-4.5 Mcg 2 puff INHALATION BID 06/12/17 07/28/17 [Symbicort 160-4.5 Mcg Inhaler] Empagliflozin [Jardiance] 25 mg PO DAILY 06/12/17 07/28/17 Orphenadrine [Norflex] 100 mg PO BID PRN 06/12/17 07/28/17 Sennosides-Docusate Sodium 1 tab PO DAILY 06/12/17 07/28/17 [Senokot-S] metFORMIN HCL 1,000 mg PO BID 06/12/17 07/28/17 Montelukast [Singulair] 10 mg PO HS 06/21/17 07/28/17 Isosorbide Mononitrate ER [Imdur] 60 mg PO QAM 07/01/17 07/28/17 lisinopriL [Zestril] 2.5 mg PO QAM 07/01/17 07/28/17 Aspirin [Adult Low Dose Aspirin EC] 81 mg PO DAILY 07/24/17 07/29/17 Previous Rx's Medication Instructions Recorded Atorvastatin [Lipitor] 80 mg PO DAILY #30 tab 04/27/17 Gabapentin [Neurontin] 100 mg PO TID #90 cap 04/27/17 Glimepiride [Amaryl] 4 mg PO AC-BID #60 tab 04/27/17 Nitroglycerin Sl Tabs [Nitrostat] 0.4 mg SUBLINGUAL Q5M PRN #25 tab 04/27/17 Metoprolol Tartrate [Lopressor] 25 mg PO BID #60 tab 06/13/17 Omeprazole [PriLOSEC] 20 mg PO AC-BID #60 cap 06/21/17 Clopidogrel [Plavix] 75 mg PO DAILY #75 tab 07/30/17 Nicotine 7Mg/24Hr Patch [Habitrol] 1 patch TRANSDERM ONCE PRN #30 07/30/17 patch Magnesium Citrate 148 ml PO ONCE 1 Days #296 ml 12/09/20 Allergies Allergy/AdvReac Type Severity Reaction Status Date / Time No Known Allergies Allergy Verified 12/19/20 00:25 Review of Systems ROS Statement: Those systems with pertinent positive or pertinent negative responses have been documented in the HPI. ROS Other: All systems not noted in ROS Statement are negative. Past Medical History Past Medical History: Coronary Artery Disease (CAD), Chest Pain / Angina, Diabetes Mellitus, Hypertension Additional Past Medical History / Comment(s): CONSTIPATED- ,ONLY HAS 2 TEETH .PSORIASES Last Myocardial Infarction Date:: 1999 History of Any Multi-Drug Resistant Organisms: None Reported Past Surgical History: Appendectomy, Cholecystectomy, Coronary Bypass/CABG Additional Past Surgical History / Comment(s): Lumbar disc surgery with cage, left shoulder scope Past Anesthesia/Blood Transfusion Reactions: No Reported Reaction Past Psychological History: Depression Smoking Status: Current every day smoker Past Alcohol Use History: None Reported Past Drug Use History: Marijuana - Past Family History Father History Unknown: Yes Family Medical History: Dementia Mother History Unknown: Yes Family Medical History: Cancer Brother(s) History Unknown: Yes Sister(s) History Unknown: Yes Daughter(s) History Unknown: Yes Son(s) History Unknown: Yes General Exam Limitations: no limitations General appearance: alert, in no apparent distress, other (Physical well- developed, well-nourished adult male patient in no acute distress. Vital signs upon presentation are temperature 97.6F, pulse 85, respirations 16, blood pressure 163/80, pulse ox 98% on room air.) Eye exam: Present: normal appearance, PERRL, EOMI. Absent: scleral icterus, conjunctival injection, periorbital swelling ENT exam: Present: normal exam, normal oropharynx, mucous membranes moist Respiratory exam: Present: normal lung sounds bilaterally. Absent: respiratory distress, wheezes, rales, rhonchi, stridor Cardiovascular Exam: Present: regular rate, normal rhythm, normal heart sounds. Absent: systolic murmur, diastolic murmur, rubs, gallop, clicks GI/Abdominal exam: Present: soft, tenderness (Upper abdominal), normal bowel sounds. Absent: distended, guarding, rebound, rigid Neurological exam: Present: alert, oriented X3, CN II-XII intact Psychiatric exam: Present: normal affect, normal mood Skin exam: Present: warm, dry, intact, normal color. Absent: rash Course Vital Signs 12/19/20 12/19/20 00:23 02:49 Temperature 97.6 F Pulse Rate 85 71 Respiratory 16 18 Rate Blood Pressure 163/80 161/84 O2 Sat by Pulse 98 99 Oximetry Medical Decision Making - Medical Decision Making 55-year-old male patient presents to the emergency department today for evaluation of upper abdominal pain and constipation. Physical examination did reveal upper abdominal tenderness. He is afebrile normal vital signs. KUB x- ray was obtained and did show constipation with right colonic dilation up to 8 cm. We did attempt a milk and molasses enema which was unsuccessful, this is most likely due to the stool being higher up in the colon. I did discuss plan with him we will discharge with the bottle of GoLYTELY, he is given instructions for its use. He is instructed to follow up with his primary care physician for recheck in 1-2 days. Return parameters were discussed in detail. He verbalizes understanding and agrees with this plan. Case discussed with my attending Dr. Zambrano. - Radiology Data Radiology results: report reviewed, image reviewed 1 view xray of the abdomen shows large amount of stool throughout the colon with the right colon dilated up to 8cm consistent with constipation. This is greater than previous. Disposition Clinical Impression: Abdominal pain Disposition: HOME SELF-CARE Condition: Good Instructions (If sedation given, give patient instructions): Constipation (ED), Abdominal Pain (ED) Additional Instructions: Take Go-Lytely as directed. Follow up with your primary care physician for recheck in 1-2 days. Return for any new, worsening, or concerning symptoms. Is patient prescribed a controlled substance at d/c from ED?: No Referrals: Anabela Rodriguez MD [Primary Care Provider] - 1-2 days Time of Disposition: 02:35
[2020-12-19 02:50] VITALS: BP 161/84; PULSE 71; RESP 18
== END 2020-12-19 03:15 | disposition home or self-care (01) ==
LOC: EC 00:21
DX: R10.10 Upper abdominal pain, unspecified (principal); F17.200 Nicotine dependence, unspecified, uncomplicated; E11.9 Type 2 diabetes mellitus without complications; I10 Essential (primary) hypertension; I25.10 Atherosclerotic heart disease of native coronary artery without angina pectoris; I25.2 Old myocardial infarction; Z79.02 Long term (current) use of antithrombotics/antiplatelets; Z79.84 Long term (current) use of oral hypoglycemic drugs; Z90.49 Acquired absence of other specified parts of digestive tract; Z95.1 Presence of aortocoronary bypass graft; F32.9 Major depressive disorder, single episode, unspecified; F12.90 Cannabis use, unspecified, uncomplicated
CPT/HCPCS: 74018; 99284; 96372; J2270

== ENCOUNTER → 2021-01-06 | Outpatient (CLI) | payer OTHER ==
--- NOTE | 2021-01-07 05:51 | MR ---
EXAMINATION TYPE: MR pancreas wo/w con DATE OF EXAM: 01/06/2021 COMPARISON: Abdomen CT scan 12/12/2020 HISTORY: Abnormal CT, bowel problems, appendix removed, stomach pain. CONTRAST: Standard multiplanar, multisequence MRI departmental protocol utilizing 7 mL intravenous Gadavist meghann olinium contrast. Liver shows no focal defect. The bile ducts are not dilated. Gallbladder is absent. Spleen is intact. Stomach is intact. There is no evidence of pleural effusion. There is no adrenal mass. Kidneys show normal size and contour. There is no hydronephrosis. There is normal contrast opacification of the kidneys. Pancreatic duct appears normal. There is uniform enhancement of the pancreas. I see no evidence of pa ncreatic mass. The pancreatic head is large but shows normal signal pattern and consistent with braden l variation. There is no pathologic enhancement. Bony structures appear intact. Lumbar spine appears intact. There is no evidence of ascites. IMPRESSION: Negative exam. No evidence of pancreatic mass. Pancreas appears normal.
== END | disposition home or self-care (01) ==
LOC: RADMRIMAIN 08:03
PROVIDERS: ATTEND Nurse Practitioner Family
DX: R10.9 Unspecified abdominal pain (principal); Z90.89 Acquired absence of other organs
CPT/HCPCS: 74183; A9585

== ENCOUNTER → 2022-11-23 | Outpatient (CLI) | payer OTHER ==
--- NOTE | 2022-11-23 16:24 | MR ---
EXAMINATION TYPE: MR abdomen wo/w con DATE OF EXAM: 11/23/2022 COMPARISON: 01/06/2021 HISTORY: Other specified diseases of pancreas. CONTRAST: Standard multiplanar, multisequence MRI departmental protocol images were obtained without contrast a nd with 6 mL intravenous Gadavist gadolinium contrast. FINDINGS: Examination is limited by patient motion. Homogeneous appearance of the liver. No intrahepatic lesion seen. The gallbladder is surgically absen t. Mild atrophic change of the pancreatic body and tail without evidence for pancreatic mass. More speci fically no pancreatic mass involving the pancreatic head or uncinate portion. No obvious inflammatory process. Pancreatic duct is of normal caliber. The spleen is of normal size. The adrenal glands and kidneys are free of mass. No hydronephrosis or nephrolithiasis. Abdominal aorta is of normal caliber. No evidence of adenopathy. Osseous structures are within normal limits. IMPRESSION: Mild atrophic change of the pancreatic body and tail otherwise unremarkable study.
== END | disposition home or self-care (01) ==
LOC: RADMRIMAIN 14:28
PROVIDERS: ATTEND Physician Assistant Medical
DX: K86.89 Other specified diseases of pancreas (principal)
CPT/HCPCS: 74183; A9585

== ENCOUNTER → 2022-12-03 | Outpatient (CLI) | payer OTHER ==
--- NOTE | 2022-12-03 20:55 | MR ---
EXAMINATION TYPE: MR brain wo/w con DATE OF EXAM: 12/03/2022 COMPARISON: None HISTORY: Cerebral infarction. TECHNIQUE: Multiplanar, multisequence images of the brain and brainstem is performed without and with IV contras t, utilizing 6 mL intravenous Gadavist . FINDINGS: Diffusion weighted images demonstrate a focus of restricted diffusion within the right thal amus with extension into the posterior limb of the internal capsule. There is corresponding T2/FLAIR hyperintensity. There is no extra-axial fluid collection. The ventricular system and cisternal space s are normal in size and appearance. No susceptibility artifact identified. The brain volume is age appropriate. Midline structures demonstrate normal morphology. The craniocervical junction appears within normal limits. Post contrast images demonstrate no abnormal enhancement. The dural venous sinuses appear pa tent. The visualized sinuses are clear and the globes are intact. Left mastoid effusion demonstrated. IMPRESSION: 1. Focus of restricted diffusion within the right thalamus with extension into the posterior limb of the internal capsule consistent with acute/subacute ischemia. 2. No abnormal contrast enhancement. 3. Left mastoid effusion. Clinical correlation for mastoiditis is recommended. Findings will be relayed to the patient by the gis technician at time of dictation with recommendation to g o to the ER.
== END | disposition home or self-care (01) ==
LOC: RADMRIMAIN 19:17
PROVIDERS: ATTEND Family Medicine
DX: I63.9 Cerebral infarction, unspecified (principal); I67.82 Cerebral ischemia
CPT/HCPCS: 70553; A9585

== ENCOUNTER → 2022-12-27 | Outpatient (CLI) | payer OTHER ==
[2022-12-27 16:00] LABS: African American GFR (CKD) >90 (>60 ml/min/1.73 sqM); Blood Urea Nitrogen 20 mg/dL (9-20); Non-African American GFR(CKD) 87 (>60 ml/min/1.73 sqM)
--- NOTE | 2022-12-30 08:57 | CT ---
EXAMINATION TYPE: CT angio upper extremity LT DATE OF EXAM: 12/27/2022 COMPARISON: None HISTORY: stents placed x 6 weeks ago. Left arm pain since CT DLP: 236.8 mGycm Automated exposure control for dose reduction was used. CONTRAST: CTA scan of the left upper extremity is performed with IV Contrast, patient injected with 100 cc mL o f Isovue 370. FINDINGS- The visualized portion of the left common carotid artery, vertebral arteries and artery. Patent. Baptiste ncy of the axillary and brachial artery to the level the elbow joint. Assessment below the elbow is s omewhat limited. Images are diminutive limited in resolution. Limited assessment of radial and ulnar arteries appear to demonstrate enhancement. Question vascular stents IMPRESSION- 1. Vasculature is patent to level the level of the elbow. Resolution is limited below the elbow but g rossly the radial and ulnar arteries appear to be patent. However given limitations of this exam and diminutive appearance of the blood vessels would recommend correlation with ultrasound with Doppler u ltrasound and color Doppler to confirm patency of the radial and ulnar arteries.
== END | disposition home or self-care (01) ==
LOC: RADCTMAIN 14:33
PROVIDERS: ATTEND Family Medicine
DX: M79.602 Pain in left arm (principal); Z98.890 Other specified postprocedural states
CPT/HCPCS: 82565; 84520; 73206; 36415; Q9967

== ENCOUNTER 2023-02-20 09:27 | Emergency (ER) | payer OTHER ==
[2023-02-20 09:40] VITALS: TEMP 98.6
--- NOTE | 2023-02-20 09:57 | ED ---
General Adult HPI - General Chief complaint: Wound/Laceration Stated complaint: Lt foot pain Time Seen by Provider: 02/20/23 09:50 Source: patient, RN notes reviewed Mode of arrival: ambulatory Limitations: no limitations - History of Present Illness Initial comments: Patient's 57-year-old male presented to ER with a chief complaint of toe pain. Patient past medical history significant for diabetes. Patient states his left third digit has been painful for the past couple of months. He denies any fevers chills and night sweats. Denies any trauma. - Related Data Home Medications Medication Instructions Recorded Confirmed Aspirin EC [Ecotrin Low Dose] 81 mg PO DAILY 02/20/23 02/20/23 Atorvastatin [Lipitor] 40 mg PO DAILY 02/20/23 02/20/23 Clopidogrel [Plavix] 75 mg PO DAILY 02/20/23 02/20/23 DULoxetine HCL [Cymbalta] 60 mg PO DAILY 02/20/23 02/20/23 Empagliflozin/Metformin HCl 1 tab PO BID 02/20/23 02/20/23 [Synjardy 12.5-1,000 mg Tablet] Tirzepatide [Mounjaro] 2.5 mg SQ TH 02/20/23 02/20/23 glipiZIDE XL [Glucotrol Xl] 10 mg PO DAILY 02/20/23 02/20/23 Previous Rx's Medication Instructions Recorded Sulfamethox-Tmp 800-160Mg [Bactrim 1 each PO Q12HR #20 tab 02/20/23 Ds] Allergies Allergy/AdvReac Type Severity Reaction Status Date / Time No Known Allergies Allergy Verified 02/20/23 11:26 Review of Systems ROS Statement: Those systems with pertinent positive or pertinent negative responses have been documented in the HPI. ROS Other: All systems not noted in ROS Statement are negative. Past Medical History Past Medical History: Coronary Artery Disease (CAD), Chest Pain / Angina, COPD, Diabetes Mellitus, GERD/Reflux, Hypertension, Myocardial Infarction (NH) Additional Past Medical History / Comment(s): psoriasis, back pain ,hx of severe constipation-states no problem now., Pt states not always compliant with his meds. Last Myocardial Infarction Date:: 1999 History of Any Multi-Drug Resistant Organisms: None Reported Past Surgical History: Appendectomy, Cholecystectomy, Coronary Bypass/CABG Additional Past Surgical History / Comment(s): Lumbar disc surgery with cage, left shoulder scope Past Anesthesia/Blood Transfusion Reactions: No Reported Reaction Past Psychological History: No Psychological Hx Reported Smoking Status: Current every day smoker Past Alcohol Use History: None Reported Past Drug Use History: Marijuana - Past Family History Father History Unknown: Yes Family Medical History: Dementia Mother History Unknown: Yes Family Medical History: Cancer Brother(s) History Unknown: Yes Sister(s) History Unknown: Yes Daughter(s) History Unknown: Yes Son(s) History Unknown: Yes General Exam Limitations: no limitations General appearance: alert, in no apparent distress Skin exam: Present: other (Left third toe erythema and edema. white soft malodorus wound noted on the lateral side of third digit.) Course Vital Signs 02/20/23 02/20/23 02/20/23 09:34 09:39 10:39 Temperature 98.6 F Pulse Rate 85 77 68 Respiratory 20 20 16 Rate Blood Pressure 100/64 113/82 123/69 O2 Sat by Pulse 99 98 98 Oximetry 02/20/23 02/20/23 11:39 11:54 Temperature Pulse Rate 70 68 Respiratory 16 20 Rate Blood Pressure 130/60 130/60 O2 Sat by Pulse 98 98 Oximetry Medical Decision Making - Medical Decision Making Was pt. sent in by a medical professional or institution ([facility], [facility], urgent care, hospital, or [facility]...) When possible be specific @ -No Did you speak to anyone other than the patient for history (EMS, parent, family, police, friend...)? What history was obtained from this source @ -No Did you review nursing and triage notes (agree or disagree)? Why? @ -I reviewed and agree with nursing and triage notes Were old charts reviewed (outside hosp., previous admission, EMS record, old EKG, old radiological studies, urgent care reports/EKG's, [facility] records)? Report findings @ -No old charts were reviewed Differential Diagnosis (chest pain, altered mental status, abdominal pain women, abdominal pain men, vaginal bleeding, weakness, fever, dyspnea, syncope, headache, dizziness, GI bleed, back pain, seizure, CVA, palpatations, mental health, musculoskeletal)? @ -Osteomyelitis, diabetic foot infection, cellulitis EKG interpreted by me (3pts min.). @ -None X-rays interpreted by me (1pt min.). @ -X-ray foot shows no evidence of osteo lesion CT interpreted by me (1pt min.). @ -None done U/S interpreted by me (1pt. min.). @ -None done What testing was considered but not performed or refused? (CT, X-rays, U/S, labs)? Why? @ -None What meds were considered but not given or refused? Why? @ -None Did you discuss the management of the patient with other professionals (professionals i.e. , PA, LACQUERER, lab, RT, psych nurse, social insurance specialist, certified teacher assistant, teacher, patrol community service officer, major case detective)? Give summary @ -No Was smoking cessation discussed for >3mins.? @ -No Was critical care preformed (if so, how long)? @ -No Were there social determinants of health that impacted care today? How? (Homelessness, low income, unemployed, alcoholism, drug addiction, transportation, low edu. Level, literacy, decrease access to med. care, fdc, rehab)? @ -No Was there de-escalation of care discussed even if they declined (Discuss DNR or withdrawal of care, Hospice)? DNR status @ -No What co-morbidities impacted this encounter? (DM, HTN, Smoking, COPD, CAD, Cancer, CVA, ARF, Chemo, Hep., AIDS, mental health diagnosis, sleep apnea, morbid obesity)? @ -Diabetes Was patient admitted / discharged? Hospital course, mention meds given and route, prescriptions, significant lab abnormalities, going to OR and other pertinent info. @ -Discharge patient does not have any evidence of osteomyelitis patient's has minimal leukocytosis patient be given Bactrim and was scheduled follow-up with wound center. Undiagnosed new problem with uncertain prognosis? @ -No Drug Therapy requiring intensive monitoring for toxicity (Heparin, Nitro, Insulin, Cardizem)? @ -No Were any procedures done? @ -No Diagnosis/symptom? @ -[Diabetic foot infection Acute, or Chronic, or Acute on Chronic? @ -Acute Uncomplicated (without systemic symptoms) or Complicated (systemic symptoms)? @ -Uncomplicated Side effects of treatment? @ -No Exacerbation, Progression, or Severe Exacerbation? @ -No Poses a threat to life or bodily function? How? (Chest pain, USA, NH, pneumonia, PE, COPD, DKA, ARF, appy, cholecystitis, CVA, Diverticulitis, Homicidal, S uicidal, threat to staff... and all critical care pts) @ -No - Lab Data Result diagrams: 02/20/23 09:55 02/20/23 09:55 Lab Results 02/20/23 02/20/23 02/20/23 Range/Units 09:55 09:55 09:55 WBC 14.3 H (3.8-10.6) k/uL RBC 5.09 (4.30-5.90) m/uL Hgb 14.3 (13.0-17.5) gm/dL Hct 45.0 (39.0-53.0) % MCV 88.5 (80.0-100.0) fL MCH 28.2 (25.0-35.0) pg MCHC 31.8 (31.0-37.0) g/dL RDW 13.3 (11.5-15.5) % Plt Count 284 (150-450) k/uL MPV 8.3 Neutrophils % 79 % Lymphocytes % 12 % Monocytes % 5 % Eosinophils % 3 % Basophils % 0 % Neutrophils # 11.2 H (1.3-7.7) k/uL Lymphocytes # 1.7 (1.0-4.8) k/uL Monocytes # 0.7 (0-1.0) k/uL Eosinophils # 0.4 (0-0.7) k/uL Basophils # 0.0 (0-0.2) k/uL Sodium 134 L (137-145) mmol/L Potassium 4.2 (3.5-5.1) mmol/L Chloride 97 L (98-107) mmol/L Carbon Dioxide 28 (22-30) mmol/L Anion Gap 9 mmol/L BUN 14 (9-20) mg/dL Creatinine 0.80 (0.66-1.25) mg/dL Est GFR (CKD-EPI)AfAm >90 (>60 ml/min/1.73 sqM) Est GFR (CKD-EPI)NonAf >90 (>60 ml/min/1.73 sqM) Glucose 166 H (74-99) mg/dL Plasma Lactic Acid Amauri 0.8 (0.7-2.0) mmol/L Calcium 9.2 (8.4-10.2) mg/dL Total Bilirubin 0.4 (0.2-1.3) mg/dL AST 20 (17-59) U/L ALT 14 (4-49) U/L Alkaline Phosphatase 138 H (38-126) U/L C-Reactive Protein 1.0 H (<1.0) mg/dL Total Protein 6.4 (6.3-8.2) g/dL Albumin 3.7 (3.5-5.0) g/dL Disposition Clinical Impression: Diabetic infection of left foot Disposition: HOME SELF-CARE Condition: Stable Instructions (If sedation given, give patient instructions): Diabetic Foot Ulcers (ED) Additional Instructions: Follow-up with wound care as directed. Continue Keflex and start Bactrim as directed.Please return to the Emergency Department if symptoms worsen or any other concerns. Prescriptions: Sulfamethox-Tmp 800-160Mg [Bactrim Ds] 1 each PO Q12HR #20 tab Is patient prescribed a controlled substance at d/c from ED?: No Referrals: Baljeet Almonte MD [Primary Care Provider] - 1-2 days [facility] [NON-STAFF] - 1-2 days (Wound Care center will contact you on 02/21 regarding date and time of appointment. If you don't speak with them please call on Friday. ) Time of Disposition: 11:20
[2023-02-20 10:31] LABS: Basophils % (A) 0 %; Eosinophils # (A) 0.4 k/uL (0-0.7); Eosinophils % (A) 3 %; HGB 14.3 gm/dL (13.0-17.5); Lymphocytes # (A) 1.7 k/uL (1.0-4.8); Lymphocytes % (A) 12 %; MCH 28.2 pg (25.0-35.0); MCHC 31.8 g/dL (31.0-37.0); MCV 88.5 fL (80.0-100.0); Mean Platelet Volume 8.3; Monocytes # (A) 0.7 k/uL (0-1.0); Monocytes % (A) 5 %; Neutrophils # (A) 11.2 k/uL (1.3-7.7); Neutrophils % (A) 79 %; Platelet Count 284 k/uL (150-450); RBC 5.09 m/uL (4.30-5.90); RDW 13.3 % (11.5-15.5); WBC 14.3 k/uL (3.8-10.6)
[2023-02-20 10:32] LABS: Potassium 4.2 mmol/L (3.5-5.1)
[2023-02-20 10:34] LABS: ALT 14 U/L (4-49); AST 20 U/L (17-59); African American GFR (CKD) >90 (>60 ml/min/1.73 sqM); Albumin 3.7 g/dL (3.5-5.0); Alkaline Phosphatase 138 U/L (38-126); Anion Gap 9 mmol/L; Blood Urea Nitrogen 14 mg/dL (9-20); Calcium 9.2 mg/dL (8.4-10.2); Carbon Dioxide 28 mmol/L (22-30); Chloride 97 mmol/L (98-107); Glucose 166 mg/dL (74-99); Non-African American GFR(CKD) >90 (>60 ml/min/1.73 sqM); Sodium 134 mmol/L (137-145); Total Bilirubin 0.4 mg/dL (0.2-1.3); Total Protein 6.4 g/dL (6.3-8.2)
--- NOTE | 2023-02-20 10:34 | XR ---
EXAMINATION TYPE: XR foot complete LT DATE OF EXAM: 02/20/2023 10:23 AM INDICATION: Patient age:Male; 57 years old; Reason for study: pain; COMPARISON: None TECHNIQUE: The left foot was examined in the AP, oblique, and lateral projections. FINDINGS: No evidence of any acute osseous pathology. No evidence of soft tissue swelling. Joints are preserve d. Multifocal degeneration changes with osteophyte formation and joint space narrowing. Atheroscleros is course of the arterial vasculature. IMPRESSION: No evidence of acute fracture.
[2023-02-20 11:54] VITALS: BP 130/60
[2023-02-20 11:56] VITALS: PULSE 68; RESP 20
== END 2023-02-20 11:57 | disposition home or self-care (01) ==
LOC: EC 09:27
DX: E11.9 Type 2 diabetes mellitus without complications (principal); L08.9 Local infection of the skin and subcutaneous tissue, unspecified; I10 Essential (primary) hypertension; I25.2 Old myocardial infarction; I25.10 Atherosclerotic heart disease of native coronary artery without angina pectoris; J44.9 Chronic obstructive pulmonary disease, unspecified; F17.200 Nicotine dependence, unspecified, uncomplicated; F12.90 Cannabis use, unspecified, uncomplicated; Z79.84 Long term (current) use of oral hypoglycemic drugs; Z79.82 Long term (current) use of aspirin; Z79.02 Long term (current) use of antithrombotics/antiplatelets; Z79.899 Other long term (current) drug therapy; Z95.5 Presence of coronary angioplasty implant and graft
CPT/HCPCS: 36415; 80053; 83605; 85025; 86140; 87040; 99284

== ENCOUNTER → 2023-02-20 | Outpatient (CLI) | payer OTHER ==
[2023-02-20 08:40] LABS: African American GFR (CKD) >90 (>60 ml/min/1.73 sqM); Blood Urea Nitrogen 14 mg/dL (9-20); Non-African American GFR(CKD) >90 (>60 ml/min/1.73 sqM)
--- NOTE | 2023-02-20 11:05 | CT ---
EXAMINATION TYPE: CT angio chest CT DLP: 470 mGycm, Automated exposure control for dose reduction was used. DATE OF EXAM: 02/20/2023 10:48 AM COMPARISON: CT 06/12/2017 CLINICAL INDICATION:Male, 57 years old with history of I77.810; TECHNIQUE/CONTRAST: CTA scan of the thorax is performed with IV Contrast, patient injected with 100 mL of Isovue 370, pul monary embolism protocol. MIP images are created and reviewed these are created on a separate workst [facility] FINDINGS: Lungs/Pleura: No evidence of focal consolidation, pleural effusion or pneumothorax. Airway: Large airways are patent. Heart: Heart is within normal limits for size. Vasculature: No evidence for filling defect to suggest pulmonary embolus. The ascending thoracic aort a is within normal limits for size measuring 3.0 cm. The aortic arch demonstrates minimal scattered c alcifications. The origins of the major vessels are patent. The descending thoracic aorta is without evidence for aneurysmal dilation. No intimal flap to suggest dissection. Visualized portions of the u pper abdomen mesentery appear patent. No intramural hematoma seen on noncontrast imaging. Mediastinum: No gross evidence of adenopathy. Musculoskeletal: Sternotomy wires are present. Mild multilevel disc saturation changes with osteophyt es and disc space narrowing present throughout the spine. Multiple right-sided remote appearing rib f ractures are present. Some of the rib fractures do not demonstrate osseous fusion. At multiple levels including ribs 6 through 10. Soft Tissues: Unremarkable. Lower neck: No significant findings. Upper Abdomen: Cholecystectomy clips are present. IMPRESSION: 1. No evidence for aortic dissection, aneurysm, or intramural hematoma. No acute process. 2. Multiple remote appearing right-sided rib fractures.
== END | disposition home or self-care (01) ==
LOC: RADCTMAIN 07:59
PROVIDERS: ATTEND Family Medicine
DX: I77.810 Thoracic aortic ectasia (principal); Z87.81 Personal history of (healed) traumatic fracture
CPT/HCPCS: 82565; 84520; 71275; 36415; Q9967